=== PATIENT | female | born 1970 | race Caucasian/White ===

== ENCOUNTER → 2017-08-27 | Day surgery (SDC) | payer BC ==
[~2017-08-27] MED LIST: ALIGN4 MG PO; ARMOUR THYROID60 MG PO; BIOTIN PO; DESLORATADINE5 MG PO; DULERA 100 MCG/13 GM INH; DYMISTA NASAL S23 GM; FENTANYL CITRATE/PF 100MCG/2 ML INJ ONE; FISH OIL PO; GLIPIZIDE5 MG PO; HYDROCODONE CO120 ML PO; INVOKANA PO; LEVAQUIN500 MG PO; LIDOCAINE HCL 2% LOCAL INJ 5 ML SDV VIAL INJ ONE; METFORMIN HCL1000 MG PO; MIDAZOLAM HCL 2 MG/2 ML VIAL ONE; MULTIVITAMINS1 EAC8 PO; OMEPRAZOLE40 MG PO; OYSTER SHELL C1 EACH PO; PANTOPRAZOLE SO40 MG PO; PROAIR HFA INH8.5 GM INH; PROPOFOL IV EMULSION 10 MG/ML 50 ML VIAL ONE; SINGULAIR10 MG PO; TESSALON PERLE100 MG PO; TRADJENTA5 MG PO; VIT D 3 PO; XANAX2 MG PO; XIFAXAN550 MG PO; ZANTAC150 MG PO; ZYRTEC10 M3 PO; amoxicillin; ventolin inhaler
--- OUTSIDE RECORDS SUMMARY | 2017-08-27 08:20 | XMS REPORT ---
Author Author [facility] Address Unknown Phone Unavailable Care Team Providers Care Will Call Clerk Name Role Phone DAYSI ARCHER Unavailable Unavailable Problems This patient has no known problems. Allergies, Adverse Reactions, Alerts This patient has no known allergies or adverse reactions. Medications This patient has no known medications. Results Test Description Test Time Test Comments Text Results Atomic Results Result Comments CHEST SINGLE (PORTABLE) [place] [address] Patient Name: PIPPA CONTRERAS MR #: [id number] : 1970 Age/Sex: 46/F Req #: [id number] Adm Physician: Ordered by: DAYSI ARCHER MD Report #: [id number] Location: ER Room/Bed: Procedure: [id number] DX/CHEST SINGLE (PORTABLE) Exam Date: 03/25/17 Exam Time: 1140 REPORT STATUS: Signed PROCEDURE: CHEST SINGLE (PORTABLE) TECHNIQUE: Portable AP chest INDICATION: Chest and back pain COMPARISON: None. FINDINGS: The lungs are clear and symmetrically inflated. No pleural effusions. Normal heart size and mediastinal contour. CONCLUSION: No acute abnormality. Dictated by: Alexa Rausch M.D. on 03/25/2017 at 12:25 Electronically approved by: Alexa Rausch M.D. on 03/25/2017 at 12:25 Dictated By: ALEXA RAUSCH MD [id number] Transcribed By: JOCY on 03/25/17 1225 COPY TO: DAYSI ARCHER MD
--- OUTSIDE RECORDS SUMMARY | 2017-08-27 08:20 | XMS REPORT ---
Author Author Esther Moseley [facility] eClinical[employer] Address Unknown Phone Unavailable Care Team Providers Care Government Relations Manager Name Role Phone Esther Moseley CP Unavailable Allergies, Adverse Reactions, Alerts Substance Reaction Event Type N.K.D.A. Info Not Available Non Drug Allergy Problems Problem Type Condition Code Onset Dates Condition Status Assessment Allergic rhinitis J30.89 Active Assessment Sinusitis - Chronic J32.9 Active Assessment Arthralgia of bilateral temporomandibular joint M26.623 Active Assessment Cough R05 Active Assessment Hoarseness R49.8 Active Assessment Edema of larynx J38.4 Active Assessment Chronic laryngitis (LPRD) J37.0 Active Problem Acute nasopharyngitis J00 Active Problem Sinusitis - Acute J01.90 Active Problem Chronic rhinitis J31.0 Active Problem Allergic rhinitis J30.89 Active Problem Otalgia * 388.70 Active Problem Wheezing R06.2 Active Problem Otalgia, left ear H92.02 Active Problem Arthralgia of bilateral temporomandibular joint M26.623 Active Problem Cough R05 Active Problem Cough R05 Active Problem GERD K21.9 Active Problem Thrush Candidiasis B37.0 Active Problem Hoarseness R49.8 Active Problem Hypertrophy of tonsil with adenoids 474.10 Active Problem Postnasal drip R09.82 Active Problem Chronic laryngitis (LPRD) J37.0 Active Problem Pain in throat R07.0 Active Problem Otalgia, bilateral H92.03 Active Problem Acute lymphadenitis L04.0 Active Problem 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 Active Problem Nasal airway obstruction R09.81 Active Problem Sinusitis - Chronic J32.8 Active Problem Sinusitis - Chronic J32.9 Active Problem Edema of larynx J38.4 Active Problem Asthma, other J45.998 Active Problem Allergic rhinitis due to pollen J30.1 Active Medications Medication Code System Code Instructions Start Date End Date Status Dosage EpiPen 2-Geremias [facility] 71640484600 0.3 MG/0.3ML Injection August 25, 2015 Active as directed Zantac 150 Maximum Strength [facility] [address]-08 Active not defined Singulair [facility] [address]-42 Active not defined [place] Thyroid [facility] [address]-97 Active not defined Dulera [facility] [address]-68 Active not defined Prilosec [facility] [address]-04 Active not defined Claritin [facility] [address]-10 Active not defined Actos [facility] [address]-69 Active not defined GlipiZIDE [facility] [address]-15 Active not defined Flonase [facility] [address]-47 Active not defined Tradjenta [facility] [address]-82 Active not defined Dymista [facility] 49689210030 137-50 MCG/ACT Nasally Twice a day October 17, 2015 Active 1 puff in each nostril Biotin [facility] 78229-35035 Active not defined Results No Known Results Summary Purpose eClinicalWorks Submission
--- OUTSIDE RECORDS SUMMARY | 2017-08-27 08:20 | XMS REPORT ---
Author Author Esther Moseley [facility] eClinicalWorks Address Unknown Phone Unavailable Care Team Providers Care Author Agent Name Role Phone Esther Moseley CP Unavailable Allergies, Adverse Reactions, Alerts Substance Reaction Event Type N.K.D.A. Info Not Available Non Drug Allergy Problems Problem Type Condition Code Onset Dates Condition Status Assessment Headache R51 Active Assessment Chronic laryngitis (LPRD) J37.0 Active Assessment Arthralgia of bilateral temporomandibular joint M26.623 Active Assessment Sinusitis - Chronic J32.8 Active Assessment Cough R05 Active Problem Acute nasopharyngitis J00 Active Problem Chronic rhinitis J31.0 Active Problem Otalgia * 388.70 Active Problem Wheezing R06.2 Active Problem Hypertrophy of tonsil with adenoids 474.10 Active Problem Arthralgia of bilateral temporomandibular joint M26.623 Active Problem Thrush Candidiasis B37.0 Active Problem Otalgia, left ear H92.02 Active Problem Postnasal drip R09.82 Active Problem Chronic laryngitis (LPRD) J37.0 Active Problem Headache R51 Active Problem Hoarseness R49.8 Active Problem Sinusitis - Chronic J32.8 Active Problem Nasal airway obstruction R09.81 Active Problem Cough R05 Active Problem GERD K21.9 Active Problem Pain in throat R07.0 Active Problem Otalgia, bilateral H92.03 Active Problem Cough R05 Active Problem Cough R05 Active Problem Asthma, other J45.998 Active Problem Allergic rhinitis due to pollen J30.1 Active Problem Acute lymphadenitis L04.0 Active Problem 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 Active Problem Sinusitis - Acute J01.90 Active Problem Allergic rhinitis J30.89 Active Problem Sinusitis - Chronic J32.9 Active Problem Edema of larynx J38.4 Active Medications Medication Code System Code Instructions Start Date End Date Status Dosage Tradjenta [facility] [address]-13 Active not defined GlipiZIDE [facility] [address]-40 Active not defined Flonase [facility] [address]-56 Active not defined Biotin [facility] [address]86-30688 Active not defined Zantac 150 Maximum Strength [facility] [address]-17 Active not defined Claritin [facility] [address]-31 Active not defined Singulair [facility] [address]-71 Active not defined Dulera [facility] [address]-04 Active not defined EpiPen 2-Geremias [facility] [id number] 0.3 MG/0.3ML Injection August 25, 2015 Active as directed Fioricet [facility] 47711070056 50-325-40 MG Orally Once a day August 05, 2017 August 15, 2017 Active 1 tablet Actos [facility] [address]-75 Active not defined [place] Thyroid [facility] [address]-10 Active not defined Prilosec [facility] [address]-43 Active not defined Dymista [facility] 10940037668 137-50 MCG/ACT Nasally Twice a day October 17, 2015 Active 1 puff in each nostril Results No Known Results Summary Purpose eClinicalWorks Submission
== END | disposition home or self-care (01) ==
LOC: OR 08:18
PROVIDERS: ATTEND Internal Medicine Gastroenterology
DX: R05 Cough (principal); K31.7 Polyp of stomach and duodenum; K29.70 Gastritis, unspecified, without bleeding; K22.8 Other specified diseases of esophagus; K21.9 Gastro-esophageal reflux disease without esophagitis; K44.9 Diaphragmatic hernia without obstruction or gangrene; K58.9 Irritable bowel syndrome, unspecified; E11.9 Type 2 diabetes mellitus without complications; D64.9 Anemia, unspecified; J45.909 Unspecified asthma, uncomplicated; E66.01 Morbid (severe) obesity due to excess calories; F41.9 Anxiety disorder, unspecified; Z01.810 Encounter for preprocedural cardiovascular examination; Z79.84 Long term (current) use of oral hypoglycemic drugs; Z68.42 Body mass index [BMI] 45.0-49.9, adult; Z80.0 Family history of malignant neoplasm of digestive organs
CPT/HCPCS: 36415; 43239; 81025; 82948; 93005; J2001; J2250

== ENCOUNTER → 2017-09-25 | Outpatient (CLI) | payer BC ==
[~2017-09-25] MED LIST changes: -FENTANYL CITRATE/PF 100MCG/2 ML INJ ONE; -LIDOCAINE HCL 2% LOCAL INJ 5 ML SDV VIAL INJ ONE; -MIDAZOLAM HCL 2 MG/2 ML VIAL ONE; -PROPOFOL IV EMULSION 10 MG/ML 50 ML VIAL ONE
--- NOTE | 2017-09-25 10:23 | Diagnostic Imaging Report ---
PROCEDURE: CT CHEST WITHOUT CONTRAST CT scan of the chest WITHOUT intravenous contrast, using standard protocol. TECHNIQUE: The chest was scanned utilizing a multidetector helical scanner from the apex to the level of the adrenal glands. No IV contrast was administered because of referring physician request. Coronal and sagittal multiplanar reformations were obtained. COMPARISON: Chest x-ray 03/25/2017 INDICATIONS: CHRONIC COUGH FINDINGS: Lines/tubes: None. Lungs and Airways: Small paramediastinal air filled cyst in the right upper lobe. The lungs and airways are otherwise normal with no focal abnormality demonstrated. Pleura: The pleural spaces are clear. Heart and mediastinum: Enlargement of the left lobe of the thyroid without discrete nodule.. No ectasia or aneurysmal dilatation of the thoracic aorta. Pulmonary outflow tract is of normal caliber. No axillary, hilar, or mediastinal lymphadenopathy. No pericardial effusion. Soft tissues: Normal. Abdomen: Visualized portions of the liver, spleen, pancreas, and adrenal glands are unremarkable. Bones: No osseous destructive lesions or focal soft tissue abnormalities. Mild degenerative disc changes of the thoracic spine. IMPRESSION: No intrathoracic CT abnormalities. Dictated by: Ajay Gomez M.D. on 09/25/2017 at 10:25 Electronically approved by: Ajay Gomez M.D. on 09/25/2017 at 10:25
== END ==
LOC: CT 09:42
PROVIDERS: ATTEND Family Medicine
DX: R05 Cough (principal)
CPT/HCPCS: 71250

== ENCOUNTER → 2019-08-28 | Outpatient (CLI) | payer BC ==
--- NOTE | 2019-08-28 10:19 | Diagnostic Imaging Report ---
EXAMINATION: KNEE LEFT 1-2 VIEWS INDICATION: Patellar tendinitis COMPARISON: None FINDINGS: No acute fracture or dislocation. Alignment is anatomic. Moderate patellofemoral compartment predominant tricompartmental degenerative changes with joint space narrowing and osteophyte formation. No substantial joint effusion. IMPRESSION: No acute osseous injury. Moderate patellofemoral compartment predominant tricompartmental degenerative changes. Signed by: Alysia London MD on 08/28/2019 10:16 AM
== END ==
LOC: RAD 09:08
PROVIDERS: ATTEND Family Medicine
DX: M76.52 Patellar tendinitis, left knee (principal)

== ENCOUNTER 2020-02-17 20:08 | Emergency (ER) | payer BC ==
[~2020-02-17] VITALS: Ht 177.8 cm; Wt 142.9 kg
[2020-02-17] MEDS ORDERED: POLYTRIM EYE DR10 ML OD (21:03)
--- NOTE | 2020-02-17 21:03 | Emergency Department Note ---
History of Present Illnes History of Present Illness Chief Complaint: rgt eye pain/scratch s/p edge of ziplock hit pt in the eye History of Present Illness This is a 49 year old female. was doing well prior to this Historian: Patient Arrival Mode: Car History limited by: condition of the patient (normal) Director Translational Required: No Onset (how long ago): hour(s) (2) Location: rgt eye Quality: sharp Radiation: Reports non-radiation Severity: moderate Onset quality: sudden Duration (how long): hour(s) (2) Timing of current episode: constant Progression: unchanged Chronicity: new Context: Reports trauma/injury; Denies recent illness, Denies recent surgery, Denies recent immobilization, Denies recent travel, Denies new medications, Denies hx of DVT/PE, Denies non- compliance w/ medications Relieving factors: none Exacerbating factors: none Associated symptoms: Reports denies other symptoms Treatments prior to arrival: none Past Medical/Family History Physician Review I have reviewed the patient's past medical and family history. Any updates have been documented here. 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 dad & sister with colon cancer hx left lung chest tube from pneumonia 2002 and now with bleb on lung per pt smoker occassional Social History Smoking Cessation: Never Smoker Any Illegal Drug Use: No TB Exposure/Symptoms: No Physically hurt or threatened: No Family History Family history of heart diseas: No Other Last Tetanus: unk Is patient up to date on immun: Yes Review of Systems Review of Systems Constitutional: Reports no symptoms EENTM: Reports as per HPI Cardiovascular: Reports no symptoms Respiratory: Reports no symptoms Gastrointestinal: Reports no symptoms Genitourinary: Reports no symptoms Musculoskeletal: Reports no symptoms Integumentary: Reports no symptoms Neurological: Reports no symptoms Psychological: Reports no symptoms Endocrine: Reports no symptoms Hematological/Lymphatic: Reports no symptoms Review of other systems: All other systems negative Physical Exam Related Data Allergies: Coded Allergies: cinnamon (Verified Allergy, Unknown, 10/01/16) latex (Verified Allergy, Unknown, RASH/ITCHING, 10/01/16) Uncoded Allergies: SHRIMP (Allergy, Unknown, 10/01/16) Vital signs reviewed: Yes Physical Exam CONSTITUTIONAL Constitutional: Present well-developed, Present well-nourished HENT HENT: Present normocephalic, Present atraumatic, Present oropharynx clear/moist, Present nose normal HENT L/R: Present left ext ear normal, Present right ext ear normal EYES Eyes: Reports PERRL, Reports conjunctivae normal, Reports other (+ RIGHT CORNEAL ABRASION SEEN WITH FLOURESCEIN) NECK Neck: Present ROM normal PULMONARY Pulmonary: Present effort normal, Present breath sounds normal CARDIOVASCULAR Cardiovascular: Present regular rhythm, Present heart sounds normal, Present capillary refill normal, Present normal rate GASTROINTESTINAL Abdominal: Present soft, Present nontender, Present bowel sounds normal GENITOURINARY Genitourinary: Present exam deferred SKIN Skin: Present warm, Present dry MUSCULOSKELETAL Musculoskeletal: Present ROM normal NEUROLOGICAL Neurological: Present alert, Present oriented x 3, Present no gross motor or s ensory deficits PSYCHOLOGICAL Psychological: Present mood/affect normal, Present judgement normal Assessment & Plan Medical Decision Making MDM SEE BELOW Assessment & Plan Final Impression: (1) Corneal abrasion Depart Disposition: HOME, SELF-retirement Meds Active Scripts Polymyxin B Sulfate/Tmp (POLYTRIM EYE DROPS) 10 Ml Drops, 1 DROP OD Q4HR, #1 B LATOYA Prov:STEFFEN BEARD AVELINA 02/17/20 Reported Medications Pantoprazole Sodium* (PROTONIX) 40 Mg Tablet.dr, 40 MG PO DAILY, TAB 08/27/17 Levofloxacin (LEVAQUIN) 500 Mg Tablet, 500 MG PO DAILY, TAB 08/23/17 Hydrocodone Bit/Homatropine (HYDROCODONE COMPOUND SYRUP) 120 Ml Syrup, PO PRN 08/23/17 Benzonatate (TESSALON PERLE) 100 Mg Capsule, 100 MG PO PRN 10/01/16 Calcium Carbonate/Vitamin D2 (OYSTER SHELL CALCIUM-VIT D TAB) 1 Each Tablet, PO DAILY 10/01/16 [Vit D 3] No Conflict Check, 4000 INTLU PO DAILY 10/01/16 Cetirizine Hcl (ZYRTEC) 10 Mg Capsule, 10 MG PO DAILY THERAPEUTICALLY SUBSTITUTED WITH LORATIDINE 10MG 10/01/16 Bifidobacterium Infantis (ALIGN) 4 Mg Capsule, 4 MG PO DAILY 10/01/16 [Invokana] No Conflict Check, 300 MG PO DAILY 10/01/16 Linagliptin (TRADJENTA) 5 Mg Tablet, 5 MG PO DAILY 10/01/16 Thyroid,Pork (ARMOUR THYROID) 60 Mg Tablet, 60 MG PO HS, TAB 01/15/14 Montelukast Sodium (SINGULAIR) 10 Mg Tablet, 10 MG PO DAILY 01/15/14 [Biotin] No Conflict Check, 5000 MCG PO DAILY 01/15/14 [Fish Oil] No Conflict Check, 1200 MG PO DAILY 01/15/14 Multivitamin (MULTIVITAMINS) 1 Each Tablet, PO DAILY 01/15/14 Mometasone/Formoterol (DULERA 100 MCG/5 MCG INHALER) 13 Gm Hfa.aer.ad, INH BID 01/15/14 Azelastine/Fluticasone (DYMISTA NASAL SPRAY) 23 Gm [place].pump, NA BID 01/15/14 STEFFEN BEARD Feb 17, 2020 21:03
--- OUTSIDE RECORDS SUMMARY | 2020-02-17 21:16 | XMS REPORT | Continuity of Care Document ---
Author Author [facility] Address Unknown Phone Unavailable Care Team Providers Care Inspector Automatic Typewriter Name Role Phone [facility] [employer] Unavailable Un available Problems Problem Status Onset Date Classification Date Reported Comments Source Dysphonia 0 05/23/2018 12/06/2018 [facility] R49.0 Active 05/19/2018 [facility] Disease of esophagus, unspecified 03/30/2018 08/10/2018 [facility] CHRONIC COUGH; GERD Active 12/12/2017 [facility] ESOPAHGEAL NODULE; ESOPHAGEAL POLYPS Active 12/12/2017 [facility] NEW PT CONSULT- Active 10/22/2017 [facility] Cough 08/10/2018 [facility] Dysphagia, unspecified 08/03/2018 [facility] Other specified diseases of esophagus 06/28/2018 [facility] Acute gastritis without bleeding 08/10/2018 [facility] Anxiety disorder, unspecified 08/10/2018 [facility] Type 2 diabetes mellitus without complications 08/10/2018 [facility] 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/28/2018 [facility] Personal history of colonic polyps 06/28/2018 [facility] Personal history of nicotine dependence 06/28/2018 [facility] Unspecified osteoarthritis, unspecified site 08/10/2018 [facility] Family history of diabetes mellitus 06/28/2018 [facility] Family history of stroke 06/28/2018 [facility] Gastro-esophageal reflux disease without esophagitis 12/06/2018 [facility] Unspecified asthma, uncomplicated 12/06/2018 [facility] Acute gastritis (disorder) Res olved Problem 01/2019 [facility] Anxiety (finding) Resolved Problem 12/06/2018 [facility] Arthritis (disorder) Resolved Problem 12/06/2018 [facility] Diabetes mellitus (disorder) R esolved Problem 01/2019 [facility] Disease of thyroid gland (disorder) Resolved Problem 01/2019 [facility] Hiatal hernia (disorder) Resol kianna Problem 01/2019 [facility] Inflammatory bowel disease (disorder) Resolved Problem 12/06/2018 [facility] Polyp of colon (disorder) Reso lved Problem 01/2019 [facility] Obesity, unspecified 08/10/2018 [facility] Diaphragmatic hernia without obstruction or gangrene 08/10/2018 [facility] Disorder of thyroid, unspecified 08/10/2018 [facility] Body mass index (BMI) 45.0-49.9, adult 08/10/2018 [facility] Medications Medication Details Route Status Patient Instructions Ordering Provider Order Date Source Hydrocortisone 25 MG/ML Topical Cream [Anusol HC] 1 appl, [place], BID, X 14 day, # 30 gm, 2 Refill(s), Pharmacy: [facility] [id number] No Longer Active 12/09/2017 [facility] thyroid (NURSING HOME) 60 MG Oral Tablet [Morgan Thyroid] 60 mg = 1 tab, PO, Daily, 0 Refill(s) Active 12/09/2017 [facility] biotin PO, Daily, 0 Refill(s) Active 12/09/2017 [facility] Fish Oil 1,200 mg, PO, 0 Refil l(s) Active 12/09/2017 [facility] Cetirizine 10 mg, PO, Daily, 0 Refill(s) Active 12/09/2017 [facility] celecoxib 200 mg, PO, 0 Refill (s) Active 12/09/2017 [facility] Multiple Vitamins oral tablet PO, Daily, 0 Refill(s) Active 12/09/2017 [facility] benzonatate 100 mg oral capsule 100 mg = 1 cap, PO, TID, 0 Refill(s) Active 12/09/2017 [facility] Vitamin D3 5,000 IntlUnit, PO, 0 Refill(s) Active 12/09/2017 [facility] pantoprazole 40 mg, PO, Daily, # 30 tab, 0 Refill(s) Active 12/09/2017 [facility] Linagliptin 5 MG Oral Tablet [Tradjenta] 5 mg = 1 tab, PO, Daily, 0 Refill(s) Active 12/09/2017 [facility] Xanax 1 mg, PO, TID, 0 Refill( s) Active 12/09/2017 [facility] canagliflozin 300 MG Oral Tablet [Invokana] 300 mg = 1 tab, PO, Before Breakfast, # 30 tab, 5 Refill(s) Active 12/09/2017 [facility] Singulair 10 mg, PO, Daily, 0 Refill(s) Active 12/09/2017 [facility] 60 ACTUAT Fluticasone propionate 0.05 MG /ACTUAT Dry Powder Inhaler INHALATION, BID, 0 Refill(s) Active 12/09/2017 [facility] Amitriptyline 50 mg, PO, Bedti me, 0 Refill(s) Active 12/09/2017 [facility] Calcium 600 +D oral tablet 1 t ab, PO, TID, 0 Refill(s) Active 12/09/2017 [facility] Bifidobacterium Infantis 4 MG Oral Capsule [Align] 4 mg = 1 cap, PO, Daily, # 28 cap, 0 Refill(s) Active 12/09/2017 [facility] Allergies, Adverse Reactions, Alerts Substance Category Reaction Severity Reaction type Status Date Reported Comments Source No Known Medication Allergies Assertion Drug aller gy [facility] Immunizations No Data Provided for This Section Results No Data Provided for This Section Pathology Reports No Data Provided for This Section Diagnostic Reports No Data Provided for This Section Consultation Notes No Data Provided for This Section Discharge Summaries No Data Provided for This Section History and Physicals No Data Provided for This Section Vital Signs Vital Sign Value Date Comments Source BMI Calculated 45.06 12/09/2017 [facility] Weight 142.455 12/09/2017 [facility] Height 177.8 cm 12/09/2017 [facility] Systolic (mm Hg) 155 12/09/2017 [facility] Diastolic (mm Hg) 87 12/09/2017 [facility] Heart Rate 90 12/09/2017 [facility] Respitory Rate 16 12/09/2017 [facility] Encounters Location Location Details Encounter Type Encounter Number Reason For Visit Attending Provider ADM Date DC Date Status Source [facility] Outpatient [id number] Joselito Francoi 12/09/2017 12/10/2017 [facility] [id number] Joselito Francoi 01/14/2018 01/14/2018 [facility] Bed[facility] Outpatient [id number] JoselitoTaylori 01/21/2018 01/21/2018 [facility] [id number] Esther Sandraum 03/18/2018 04/17/2018 [facility] [id number] Esther Sandraum 04/19/2018 05/19/2018 [facility] [id number] Esther Sandraum 05/31/2018 06/30/2018 [facility] Procedures Procedure Code Date Perfomer Comments Source Colonoscopy [id number] [facility] Endoscopy of GI tract [id number] [facility] Assessment and Plan No Data Provided for This Section Plan of Care No Data Provided for This Section Social History Social History Date Source Social History TypeResponse Alcohol Current, Type Wine, Liquor. Smoking Status Former smoker; Ready to change: No; Concerns about tobacco use in household: No; Exposure to Tobacco Smoke None; Cigarette Smoking Last 365 Days No; Reg Smoking Cessation Counseling No entered on: 12/09/17 12/09/2017 [facility] Social History TypeResponse Alcohol Current, Type Wine, Liquor. Smoking Status Former smoker; Ready to change: No; Concerns about tobacco use in household: No; Exposure to Tobacco Smoke None; Cigarette Smoking Last 365 Days No; Reg Smoking Cessation Counseling No entered on: 12/09/17 12/09/2017 [facility] Family History No Data Provided for This Section Advance Directives No Data Provided for This Section Functional Status No Data Provided for This Section
--- OUTSIDE RECORDS SUMMARY | 2020-02-17 21:16 | XMS REPORT | Clinical Summary ---
Author Author [facility] Organization [facility] Address Unknown Phone Unavailable Care Team Providers Care Signals Analyst Name Role Phone Esther Moseley MD PCP [phone] Allergies Comments Active Allergy Reactions Severity Noted Date Reverse reaction - Pain, sweating , insomnia Morphine Other (See 01/22/2020 Comments) Medications End Date Status Medication Sig Dispensed Refills Start Date Active cetirizine (ZyrTEC) 10 MG Chew 10 mg 0 chewable tablet every evening. Active metFORMIN (GLUCOPHAGE) Take 500 mg 0 500 mg tablet by mouth 2 (two) times a day with meals. Active pantoprazole (PROTONIX) Take 40 mg by 0 40 MG EC tablet mouth daily. Active montelukast (SINGULAIR) Take 10 mg by 0 10 mg tablet mouth nightly. Active rosuvastatin (CRESTOR) 10 Take 10 mg by 0 mg tablet mouth every evening. Active losartan (COZAAR) 25 MG Take 25 mg by 0 tablet mouth every evening. Active fluticasone propionate 2 sprays by 0 (FLONASE) 50 Each Nare mcg/actuation nasal spray route daily. Active benzonatate (TESSALON) Take 100 mg 0 100 MG capsule by mouth 3 (three) times a day as needed for cough. Active omega 2-qqz-rsp-fish oil Take by 0 (Fish Oil) 100-160-1,000 mouth. mg capsule Active biotin-keratin 10,000-100 Take by 0 mcg-mg tablet mouth. Active calcium carbonate/vitamin Take by 0 D3 (CALCIUM 600 WITH mouth. VITAMIN D3 ORAL) Active vitamin D3-folic acid Take by mouth 0 5,000 unit- 1 mg tablet daily. Active ascorbic acid, vitamin C, Take 500 mg 0 (VITAMIN C) 500 MG tablet by mouth daily. Active Bifidobacterium infantis Take by 0 (ALIGN ORAL) mouth. Active methylcellulose (FIBER Take by mouth 0 THERAPY, M-CELLULOSE, every ORAL) evening. FIBER THERAPY Active therapeutic multivitamin Take 1 tablet 0 (THERAGRAN) tablet by mouth daily. Womens' daily Active thyroid, pork, 15 mg Take 3 30 tablet 1 02/01 tablet tablets (45 0 mg total) by mouth daily. Active insulin ASPART protamine Inject 10 15 mL 1 1 and insulin ASPART units twice a 0 (NovoLOG 70/30) 100 day with unit/mL (70-30) insulin food. pen Active pen needle, diabetic (Pen Inject twice 100 each 1 Needle) 31 gauge x 5/16" a day. 0 needle 03/03/2020 Active pregabalin (LYRICA) 100 Take 1 60 capsule 0 MG capsule capsule (100 0 mg total) by mouth 2 (two) times a day for 30 days. 03/04/2020 Active FLUoxetine (PROzac) 20 MG Take 1 30 capsule 0 capsule capsule (20 0 mg total) by mouth every morning for 30 days. 03/03/2020 Active valACYclovir (VALTREX) Take 1 tablet 60 tablet 0 1 1000 MG tablet (1,000 mg 0 total) by mouth 2 (two) times a day for 30 days. 02/23/2020 Active carBAMazepine (TEGretol) Take 1 tablet 42 tablet 0 200 mg tablet (200 mg 0 total) by mouth 3 (three) times a day for 7 days, THEN 1 tablet (200 mg total) 2 (two) times a day for 7 days, THEN 1 tablet (200 mg total) daily for 7 days. 02/02/2020 Discontinued (Stop Taking at Discharge) oxcarbazepine (OXTELLAR Take 1,500 mg 0 XR ORAL) by mouth every evening. 02/02/2020 Discontinued (Stop Taking at Discharge) baclofen (LIORESAL) 20 MG Take 20 mg by 0 tablet mouth 3 (three) times a day. 02/02/2020 Discontinued (Reorder) pregabalin (LYRICA) 75 MG Take 150 mg 0 capsule by mouth 2 (two) times a day. 02/02/2020 Discontinued (Stop Taking at Discharge) amitriptyline (ELAVIL) Take 100 mg 0 100 MG tablet by mouth nightly. 02/02/2020 Discontinued (Stop Taking at Discharge) empagliflozin (Jardiance) Take 10 mg by 0 10 mg tablet tablet mouth every evening. 02/02/2020 Discontinued (Stop Taking at Discharge) thyroid, pork, (ARMOUR Take 60 mg by 0 THYROID) 60 mg tablet mouth every evening. 02/02/2020 Discontinued (Reorder) ALPRAZolam (XANAX) 1 MG Take 1 mg by 0 tablet mouth nightly as needed for anxiety. 02/02/2020 Discontinued carBAMazepine (TEGretol) Take 1 tablet 120 tablet 0 200 mg tablet (200 mg 0 total) by mouth every 6 (six) hours for 30 days. 02/09/2020 ALPRAZolam (XANAX) 0.25 Take 1 tablet 7 tablet 0 MG tablet (0.25 mg 0 total) by mouth nightly as needed for anxiety for up to 7 days. 02/12/2020 enoxaparin (Lovenox) 40 Inject 0.4 mL 10 Syringe 0 mg/0.4 mL (40 mg total) 0 syringeIndications: deep under the vein thrombosis skin daily prevention for 10 days .deep vein thrombosis prevention. Active Problems Problem Noted Date Trigeminal neuralgia of left side of face 01/21/2020 Type 2 diabetes mellitus with hyperglycemia, without long-term current use 01/21/2020 of insulin Acquired hypothyroidism 01/21/2020 Class 3 severe obesity due to excess calories with se rious comorbidity and 01/21/2020 body mass index (BMI) of 40.0 to 44.9 i n adult Encounters Care Team Description Date Type Specialty Vega Minaya MD Follow-up examination following surgery (Primary Dx); Trigeminal neuralgia of left side of face 02/11/2020 Office Visit Neurosurgery 02/11/2020 Travel Regina Wooten LVN 02/08/2020 Telephone Neurosurgery Regina Wooten LVN 02/04/2020 Telephone Neurosurgery 02/03/2020 Travel Radha Amaral MD Everitt, Amanda W., APRN 01/26/2020 Anesthesia General Surgery Event Vega Minaya MD LEFT RETRO MASTOID CRANIECTOMY AND MICRO VASCULAR DECOMPRESSION OF CRANIAL NERVE FIVE, SSEP/ABR MONITORING 01/26/2020 Surgery General Surgery Vega Minaya MD Trigeminal neuralgia 01/26/2020 Hospital Neurology Encounter Vega Minaya MD Trigeminal neuralgia of left side of fac e (Primary Dx); Trigeminal neuralgia 01/26/2020 Hospital Neurosurgery - Encounter 02/02/2020 Vega Minaya MD Preop examination (Primary Dx); Preop testing 01/22/2020 Pre-Admission Pre-Admission Testi ng Testing 01/22/2020 Travel Vega Minaya MD Arrived 01/21/2020 Hospital Radiology Encounter Vega Minaya MD Trigeminal neuralgia of left side of fac e (Primary Dx); Type 2 diabetes mellitus with hyperglycemia, without long-term current use of insulin (HCC); Acquired hypothyroidism; Class 3 severe obesity due to excess calories with serious comorbidity and body mass index (BMI) of 40.0 to 44.9 in adult (HCC) 01/21/2020 Office Visit Neurosurgery Regina Wooten LVN Trigeminal neuralgia (Primary Dx); Preop testing 01/21/2020 Orders Only Neurosurgery Regina Wooten LVN 01/20/2020 Abstract Neurosurgery 01/20/2020 Travel after 02/16/2019 Immunizations Name Administration Dates Next Due FLUCELVAX QUAD PF 01/29/2020 Surgical History Surgery Date Site/Laterality Comments TONSILLECTOMY + adenoidectomy CRANIOTOMY 01/26/2020 Head/N/A Procedure: LEFT RETRO MASTOID CRANIECTOMY AND MICROVASCULAR DECOMPRESSION OF CRANIAL NERVE FIVE, SSEP/ABR MONITORING; Surgeon: Vega Minaya MD; Location: [facility]; Service: Neurosurgery; Laterality: N/A; Medical History Medical History Date Comments Diabetes mellitus (HCC) GERD (gastroesophageal reflux disease) Disease of thyroid gland Anxiety Arthritis Trigeminal neuralgia Anesthesia NHAP / NFHAP Denti tion: intact Does not exercise denied SOB or CP / has difficulty climbing stairs Asthma controlled / allergy nate josefa Family History Medical History Relation Name Comments Cancer Father Diabetes Father Heart disease Father Hypertension Mother Relation Name Status Comments Father Alive Mother Social History Date Tobacco Use Types Packs/Day Years Used Quit: 2017 Former Smoker Cigarettes 1 20 Smokeless Tobacco: Never Used Drinks/Week oz/Week Comments Alcohol Use once a month Yes Sex Assigned at Date Recorded Not on file Date Recorded COVID-19 Exposure Response 02/11/2020 8:59 AM CDT In the last month, have you been in contact with No / Unsure someone who was confirmed or suspected to have Coronavirus / COVID-19? Last Filed Vital Signs Reading Time Taken Comments Vital Sign 125/80 02/02/2020 3:19 PM CDT Blood Pressure 83 02/02/2020 3:19 PM CDT Pulse 36.5 C (97.7 F) 02/02/2020 3:19 PM CDT Temperature 18 02/02/2020 3:19 PM CDT Respiratory Rate 100% 02/02/2020 3:19 PM CDT Oxygen Saturation - - Inhaled Oxygen Concentration 131 kg (289 lb 1.6 oz) 01/30/2020 5:00 AM CDT Weight 177.8 cm (5' 10") 01/27/2020 12:07 AM CDT Height 41.48 01/27/2020 12:07 AM CDT Body Mass Index Plan of Treatment Health Maintenance Due Date Last Done Comments DIABETES: RETINAL EYE 1981 EXAM DIABETIC FOOT EXAM 1981 URINE MICROALBUMIN 1981 CERVICAL CANCER SCREENING 1992 INFLUENZA VACCINE Completed 01/29/2020 Procedures Comments Procedure Name Priority Date/Time Associated Diag nosis POC GLUCOSE Routine 02/02/2020 11:34 AM CDT POC GLUCOSE Routine 02/02/2020 7:26 AM CDT ESTIMATED GFR Routine 02/02/2020 4:40 AM CDT HC COMPLETE BLD COUNT Routine 02/02/2020 W/AUTO DIFF 4:40 AM CDT BASIC METABOLIC PANEL Routine 02/02/2020 4:40 AM CDT POC GLUCOSE Routine 02/01/2020 5:56 PM CDT POC GLUCOSE Routine 02/01/2020 2:32 PM CDT POC GLUCOSE Routine 02/01/2020 12:11 PM CDT US DUPLEX VENOUS UPPER Routine 02/01/2020 EXTREMITY LEFT 9:35 AM CDT POC GLUCOSE Routine 02/01/2020 8:03 AM CDT POC GLUCOSE Routine 02/01/2020 4:33 AM CDT POC GLUCOSE Routine 01/31/2020 10:18 PM CDT POC GLUCOSE Routine 01/31/2020 7:43 PM CDT POC GLUCOSE Routine 01/31/2020 5:10 PM CDT POC GLUCOSE Routine 01/31/2020 12:09 PM CDT POC GLUCOSE Routine 01/31/2020 7:57 AM CDT POC GLUCOSE Routine 01/30/2020 8:39 PM CDT POC GLUCOSE Routine 01/30/2020 5:20 PM CDT POC GLUCOSE Routine 01/30/2020 11:35 AM CDT POC GLUCOSE Routine 01/30/2020 8:30 AM CDT XR CHEST 1 VW PORTABLE Routine 01/30/2020 5:36 AM CDT ESTIMATED GFR Routine 01/30/2020 2:25 AM CDT LIPID PANEL Routine 01/30/2020 2:25 AM CDT VITAMIN D 25 HYDROXY Routine 01/30/2020 LEVEL 2:25 AM CDT PHOSPHORUS LEVEL Routine 01/30/2020 2:25 AM CDT MAGNESIUM LEVEL Routine 01/30/2020 2:25 AM CDT IONIZED CALCIUM Routine 01/30/2020 2:25 AM CDT HC COMPLETE BLD COUNT Routine 01/30/2020 W/AUTO DIFF 2:25 AM CDT BASIC METABOLIC PANEL Routine 01/30/2020 2:25 AM CDT POC GLUCOSE Routine 01/29/2020 9:07 PM CDT POC GLUCOSE Routine 01/29/2020 8:13 PM CDT POC GLUCOSE Routine 01/29/2020 3:37 PM CDT HC URINALYSIS CHEMICAL Routine 01/29/2020 12:15 PM CDT ESTIMATED GFR Timed 01/29/2020 12:00 PM CDT BASIC METABOLIC PANEL Timed 01/29/2020 12:00 PM CDT BETA HYDROXYBUTYRATE Routine 01/29/2020 11:32 AM CDT CORTISOL LEVEL, RANDOM Routine 01/29/2020 11:26 AM CDT T4, FREE Routine 01/29/2020 11:26 AM CDT THYROID STIMULATING Routine 01/29/2020 HORMONE 11:26 AM CDT POC GLUCOSE Routine 01/29/2020 11:23 AM CDT POC GLUCOSE Routine 01/29/2020 8:[address] HEAD WO CONTRAST STAT 01/29/2020 8:10 AM CDT ESTIMATED GFR Timed 01/29/2020 8:00 AM CDT BASIC METABOLIC PANEL Timed 01/29/2020 8:00 AM CDT ESTIMATED GFR Timed 01/29/2020 4:39 AM CDT BASIC METABOLIC PANEL Timed 01/29/2020 4:39 AM CDT POC GLUCOSE Routine 01/29/2020 3:44 AM CDT ESTIMATED GFR Routine 01/29/2020 1:17 AM CDT PHOSPHORUS LEVEL Routine 01/29/2020 1:17 AM CDT MAGNESIUM LEVEL Routine 01/29/2020 1:17 AM CDT IONIZED CALCIUM Routine 01/29/2020 1:17 AM CDT BASIC METABOLIC PANEL Routine 01/29/2020 1:17 AM CDT POC GLUCOSE Routine 01/29/2020 12:37 AM CDT HC COMPLETE BLD COUNT Routine 01/29/2020 W/AUTO DIFF 12:28 AM CDT POC GLUCOSE Routine 01/28/2020 8:01 PM CDT ESTIMATED GFR Timed 01/28/2020 8:00 PM CDT BASIC METABOLIC PANEL Timed 01/28/2020 8:00 PM CDT POC GLUCOSE Routine 01/28/2020 4:22 PM CDT ESTIMATED GFR Routine 01/28/2020 3:12 PM CDT BASIC METABOLIC PANEL Routine 01/28/2020 3:12 PM CDT ARTERIAL BLOOD GAS STAT 01/28/2020 3:12 PM CDT POC GLUCOSE Routine 01/28/2020 11:23 AM CDT ESTIMATED GFR Routine 01/28/2020 10:05 AM CDT BASIC METABOLIC PANEL Routine 01/28/2020 10:05 AM CDT POC GLUCOSE Routine 01/28/2020 7:34 AM CDT POC GLUCOSE Routine 01/28/2020 6:03 AM CDT ESTIMATED GFR Routine 01/28/2020 6:00 AM CDT BASIC METABOLIC PANEL Routine 01/28/2020 6:00 AM CDT POC GLUCOSE Routine 01/28/2020 5:14 AM CDT POC GLUCOSE Routine 01/28/2020 4:06 AM CDT POC GLUCOSE Routine 01/28/2020 3:05 AM CDT ESTIMATED GFR Timed 01/28/2020 2:20 AM CDT BASIC METABOLIC PANEL Timed 01/28/2020 2:20 AM CDT PHOSPHORUS LEVEL Timed 01/28/2020 2:20 AM CDT MAGNESIUM LEVEL Timed 01/28/2020 2:20 AM CDT IONIZED CALCIUM Timed 01/28/2020 2:20 AM CDT POC GLUCOSE Routine 01/28/2020 2:01 AM CDT HC COMPLETE BLD COUNT Timed 01/28/2020 W/AUTO DIFF 2:00 AM CDT POC GLUCOSE Routine 01/28/2020 12:47 AM CDT POC GLUCOSE Routine 01/27/2020 11:49 PM CDT POC GLUCOSE Routine 01/27/2020 11:10 PM CDT POC GLUCOSE Routine 01/27/2020 9:58 PM CDT POC GLUCOSE Routine 01/27/2020 8:52 PM CDT ESTIMATED GFR Timed 01/27/2020 8:00 PM CDT BASIC METABOLIC PANEL Timed 01/27/2020 8:00 PM CDT POC GLUCOSE Routine 01/27/2020 7:59 PM CDT POC GLUCOSE Routine 01/27/2020 7:08 PM CDT POC GLUCOSE Routine 01/27/2020 6:03 PM CDT ESTIMATED GFR STAT 01/27/2020 6:00 PM CDT BASIC METABOLIC PANEL STAT 01/27/2020 6:00 PM CDT URINALYSIS SCREEN AND STAT 01/27/2020 MICROSCOPY, WITH REFLEX 5:20 PM CDT TO CULTURE URINE CULTURE STAT 01/27/2020 5:20 PM CDT BASIC METABOLIC PANEL Routine 01/27/2020 4:57 PM CDT BLOOD CULTURE, AEROBIC & Routine 01/27/2020 ANAEROBIC 4:50 PM CDT POC GLUCOSE Routine 01/27/2020 4:20 PM CDT DKA ELECTROLYTES AND Timed 01/27/2020 GLUCOSE TEST 3:20 PM CDT POC GLUCOSE Routine 01/27/2020 2:38 PM CDT INTRAOPERATIVE MONITORING Routine 01/27/2020 Trig eminal neuralgia 1:39 PM CDT POC GLUCOSE Routine 01/27/2020 1:39 PM CDT HEMOGLOBIN A1C STAT 01/27/2020 1:05 PM CDT HC COMPLETE BLD COUNT STAT 01/27/2020 W/AUTO DIFF 1:05 PM CDT DKA ELECTROLYTES AND STAT 01/27/2020 GLUCOSE TEST 1:05 PM CDT BLOOD CULTURE, AEROBIC & Routine 01/27/2020 ANAEROBIC 1:00 PM CDT ESTIMATED GFR STAT 01/27/2020 12:33 PM CDT PHOSPHORUS LEVEL STAT 01/27/2020 12:33 PM CDT MAGNESIUM LEVEL STAT 01/27/2020 12:33 PM CDT COMPREHENSIVE METABOLIC STAT 01/27/2020 PANEL 12:33 PM CDT POC GLUCOSE Routine 01/27/2020 11:42 AM CDT ARTERIAL BLOOD GAS STAT 01/27/2020 11:20 AM CDT BETA HYDROXYBUTYRATE Routine 01/27/2020 11:20 AM CDT POC GLUCOSE Routine 01/27/2020 7:42 AM CDT ESTIMATED GFR Routine 01/27/2020 7:35 AM CDT LACTIC ACID LEVEL Routine 01/27/2020 7:35 AM CDT BASIC METABOLIC PANEL Routine 01/27/2020 7:35 AM CDT POC GLUCOSE Routine 01/27/2020 4:40 AM CDT HC COMPLETE BLD COUNT Routine 01/27/2020 W/AUTO DIFF 2:25 AM CDT PROTHROMBIN TIME WITH INR Routine 01/27/2020 2:25 AM CDT PARTIAL THROMBOPLASTIN Routine 01/27/2020 TIME (PTT) 2:25 AM CDT HEMOGLOBIN A1C Routine 01/27/2020 2:25 AM CDT ESTIMATED GFR Routine 01/27/2020 12:28 AM CDT COMPREHENSIVE METABOLIC Routine 01/27/2020 PANEL 12:28 AM CDT MAGNESIUM LEVEL Routine 01/27/2020 12:28 AM CDT IONIZED CALCIUM Routine 01/27/2020 12:28 AM CDT POC GLUCOSE Routine 01/27/2020 12:11 AM CDT POC GLUCOSE Routine 01/26/2020 7:41 PM CDT RI AN ELECTIVE Routine 01/26/2020 ENDOT[address]ACHEAL AIRWAY 4:31 PM CDT CRANIOTOMY 01/26/2020 Trigeminal neuralgi a 3:16 PM CDT Case Notes EST 3HRS, SSEP/ABR Special Needs EST 3HRS, LATERAL LEFT SIDE UP POSITION, MICROSCOPE , SSEP/ABR NEUROPHYS MONITORING POC GLUCOSE Routine 01/26/2020 12:35 PM CDT SURGICAL PATHOLOGY Routine 01/26/2020 REQUEST 8:52 AM CDT ESTIMATED GFR STAT 01/26/2020 8:35 AM CDT CBC HEMOGRAM STAT 01/26/2020 8:35 AM CDT BASIC METABOLIC PANEL STAT 01/26/2020 8:35 AM CDT POC GLUCOSE Routine 01/26/2020 8:27 AM CDT COVID-19 QUALITATIVE PCR Routine 01/22/2020 Preop testing 6:26 PM CDT HC COMPLETE BLD COUNT Routine 01/22/2020 Preop te sting W/AUTO DIFF 6:13 PM CDT ECG PRE/POST OP Routine 01/22/2020 Preop examinat ion 6:07 PM CDT ESTIMATED GFR Routine 01/22/2020 5:56 PM CDT COMPREHENSIVE METABOLIC Routine 01/22/2020 Preop testing PANEL 5:56 PM CDT HEMOGLOBIN A1C Routine 01/22/2020 Preop examinati on 5:56 PM CDT TYPE AND SCREEN Routine 01/22/2020 Preop examinat ion 5:56 PM CDT PROTHROMBIN TIME WITH INR Routine 01/22/2020 Preo p examination 5:56 PM CDT PARTIAL THROMBOPLASTIN Routine 01/22/2020 Preop e xamination TIME (PTT) 5:56 PM CDT MRI HEAD EXTERNAL STUDY Routine 10/16/2019 12:00 AM CDT after 02/16/2019 Results * POC glucose (02/02/2020 11:34 AM CDT) Only the most recent of 50 results within the time period is included. POC glucose 170 (H) 65 - 99 mg/dL [place] Comment: [employer] Name: [facility] Device ID: [id number] Chartable: [facility] Notified RN Specimen Blood Performing Organization Address City/State/ZIP Code P karrie Number [facility] DE[facility] OF [address] [place] [address] PATHOLOGY AND GENOMIC MEDICINE [place] [address] * Estimated GFR (02/02/2020 4:40 AM CDT) Only the most recent of 18 results within the time period is included. [facility] Estimated GFR >=90 mL/min/1.73 m2 [place] Comment: [facility] Interpretation G1 >=90 Normal or high G2 60-89 Mildly decreased G3a 45-59 Mildly to moderately decreased G3b 30-44 Moderately to severely decreased G4 15-29 Severely decreased G5 <15 Kidney failure The eGFR was calculated using the Chronic Kidney Disease Epidemiology Collaboration (CKD-EPI) equation. Interpretation is based on recommendations of the National Kidney Foundation-Kidney Disease Outcomes Quality Initiative (NKF-KDOQI) published in 2014. Specimen Performing Organization Address City/State/ZIP Code P karrie Number [facility] [address] [place] [address] PATHOLOGY AND GENOMIC MEDICINE [address] * CBC with platelet and differential (02/02/2020 4:40 AM CDT) Only the most recent of 7 results within the time period is included. [facility] WBC 9.16 4.50 - 11.00 k/uL [facility] RBC 4.36 4.20 - 5.50 m/uL [facility] HGB 12.5 12.0 - 16.0 g/dL [facility] HCT 37.9 37.0 - 47.0 % [facility] MCV 86.9 82.0 - 100.0 fL [facility] MCH 28.7 27.0 - 34.0 pg [facility] MCHC 33.0 31.0 - 37.0 g/dL [facility] RDW - SD 40.6 37.0 - 55.0 fL [facility] MPV 9.9 8.8 - 13.2 fL [facility] Platelet count 210 150 - 400 k/uL [facility] Nucleated RBC 0.00 /100 WBC [facility] Neutrophils 61.8 39.0 - 69.0 % [facility] Lymphocytes 27.1 25.0 - 45.0 % [facility] Monocytes 8.3 0.0 - 10.0 % [facility] Eosinophils 2.3 0.0 - 5.0 % [facility] Basophils 0.3 0.0 - 1.0 % [facility] Immature 0.2Comment: "Immature 0.0 - 1.0 % [place] granulocytes granulocytes" (promyelocytes, METHOD IST myelocytes, metamyelocytes) HOSPITAL Specimen Blood Performing Organization Address [facility] [place] [address] PATHOLOGY AND GENOMIC MEDICINE [address] * Basic metabolic panel (02/02/2020 4:40 AM CDT) Only the most recent of 16 results within the time period is included. Sodium 139 135 - 148 mEq/L [facility] Potassium 4.4 3.5 - 5.0 mEq/L [facility] Chloride 97 (L) 98 - 112 mEq/L [facility] CO2 29 24 - 31 mEq/L [facility] Anion gap 13@ANIO 7 - 15 mEq/L [facility] BUN 5 (L) 6 - 20 mg/dL [facility] Creatinine 0.55 0.50 - 0.90 mg/dL [facility] Glucose 166 (H) 65 - 99 mg/dL [facility] Calcium 9.2 8.3 - 10.2 mg/dL [facility] Specimen Blood Performing Organization Address [facility] [place] [address] PATHOLOGY AND GENOMIC MEDICINE [address] * Us duplex venous upper extremity (02/01/2020 9:35 AM CDT) Specimen Narrative Performed At [facility] Vascular U ltrasound Laboratory Upper Extr emity Venous Report [address] [place] [address] Pat.Name: DIANEPIPPA NOEMY floresID: [id number] S t.Date: 02/01/2020 Refer.MD: NEAL MARC MD Exam Time: 9:02:00 AM Study Type:UE Venous Height: 70in Weight: 289lb BSA: 2.44 m2 Age: 12 1970,49Y Sex: FEMALE Sonogrphr: Vivienne Hernandez, RVT, KAROL Oconnell, RCS Pat. Stat.:Inpatient Room: [facility] 04-A Tape Vol: YH/SB, CPT - 4: 95837 Echo Event ID:[id number] Order ID: [id number] Reason for Study:Arm swelling, DVT susp ected. History of left trigeminal neuralgia, diabetes, anxiety , arthritis, asthma, disease of thyroid gland and GERD. Procedures: B-flow imaging, Colorflow, Grayscale/2D, Pulsed wave Doppler Race: C SUMMARY: DUPLEX SCAN OBSERVATIONS Right Left IJ Normal Subclavian Normal Normal Axillary Normal Brachial Normal Basilic Normal Cephalic Normal RIGHT: There is normal compressibility with no evidence of echogenic material noted within the lumen of the visualized veins. Colorflow and Doppler signals are normal. LEFT: There is normal compressibility with no evidence of echogenic material noted within the lumen of the visualized veins. Colorflow and Doppler signals are normal. PRELIMINARY FINDINGS 1. No evidence of venous thrombosis not ed in the visualized upper extremity veins. PHYSICIAN INTERPRETATION Venous examination of the left upper ex tremity and neck demonstrated no evidence of venous thrombosis. FINDINGS: Signed 02/02/2020 10:09 AM Roderick Vega MD, FACS, RPVI Procedure Note Interface, Radiology Results In - 02/02/2020 10:10 AM T Vascular Ultrasound Laboratory Upper Extremity Venous Report [address] [address], [place] [id number] Pat.Name: PIPPA CONTRERAS.ID: [id number] .Date: 02/01/2020 Refer.MD: NEAL MARC MD Exam Time: 9:02:00 AM Study Type:UE Venous Height: 70in Weight: 289lb BSA: 2.44 m2 Age: 12 1970,49Y Sex: FEMALE Sonogrphr: Vivienne Hernandez, RVT, Juan Manuel Nevarez, RVS, RCS Pat. Stat.:Inpatient Room: [facility] 04-A Tape Vol: YMary/JENNIFER, CPT - 4: 24052 Echo Event ID:[id number] Order ID: [id number] Reason for Study:Arm swelling, DVT suspected. History of left trigeminal neuralgia, diabetes, anxiety, arthritis, asthma, disease of thyroid gland and GERD. Procedures: B-flow imaging, Colorflow, Grayscale/2D, Pulsed wave Doppler Race: C SUMMARY: DUPLEX SCAN OBSERVATIONS Right Left IJ Normal Subclavian Normal Normal Axillary Normal Brachial Normal Basilic Normal Cephalic Normal RIGHT: There is normal compressibility with no evidence of echogenic material noted within the lumen of the visualized veins. Colorflow and Doppler signals are normal. LEFT: There is normal compressibility with no evidence of echogenic material noted within the lumen of the visualized veins. Colorflow and Doppler signals are normal. PRELIMINARY FINDINGS 1. No evidence of venous thrombosis note d in the visualized upper extremity veins. PHYSICIAN INTERPRETATION Venous examination of the left upper extremity and neck demonstrated no evidence of venous thrombosis. FINDINGS: Signed 02/02/2020 10:09 AM Roderick Vega MD, FACS, RPVI Performing Organization Address City/State/ZIP Code [facility] Number [facility] [address] [place] [address] * XR Chest 1 Vw Portable (01/30/2020 5:36 AM CDT) Specimen Narrative Performed At EXAMINATION: XR CHEST 1 VW PORTABLE [facility] CLINICAL HISTORY: ICU pt unstable o r clinical worsening COMPARISON: None IMPRESSION: 1.Heart size is within normal limits. 2.No infiltrates or effusions are seen. Vessels are not congested. [id number] Procedure Note Hm Interface, Radiology Results Incoming - 01/30/2020 6:36 AM CDT EXAMINATION: XR CHEST 1 VW PORTABLE CLINICAL HISTORY: ICU pt unstable or clinical worsening COMPARISON: None IMPRESSION: 1.Heart size is within normal limits. 2.No infiltrates or effusions are seen. Vessels are not congested. [id number] Performing Organization Address City/[facility]/ZIP Code P karrie Number [facility] [address] [place] [address] * Vitamin D 25 hydroxy level (01/30/2020 2:25 AM CDT) Vitamin D, 53.8 30.0 - 150.0 ng/mL [place] 25-hydroxy Comment: DRUZE This assay reports the sum of HOSPITAL 25-hydroxy vitamin D3 and 25-hydroxy vitamin D2. Reference range: 0-17 years: Deficiency: less than 20ng/mL Optimum level: greater than or equal to 20 ng/mL. 18 years and older: Deficiency: less than 20ng/mL Insufficiency: 20-29 ng/mL Optimum Level: 30-80 ng/mL The assay reportable range is 3.4 155.9 ng/mL. Levels higher than 150 ng/mL may be associated with toxicity. If toxicity is clinically suspected and the reported result is >155.9 ng/mL,contact lab for alternative methods to obtain a definitive level. If separate quantitation of 25-hydroxy vitamin D3 and 25-hydroxy vitamin D2 is needed, please contact lab for alternative methods. Specimen Blood Performing Organization Address City/[facility]/ZIP Code P kar[place] Number [facility] [address] [place] [address] PATHOLOGY AND GENOMIC MEDICINE [place] [address] [place] [address] * Phosphorus level (01/30/2020 2:25 AM CDT) Only the most recent of 4 results within the time period is included. Phosphorus 3.3 2.4 - 4.5 mg/dL [facility] Specimen Blood Performing Organization Address City/State/ZIP Code P karrie Number [facility] [address] [place] [address] PATHOLOGY AND GENOMIC MEDICINE [place] [facility] [address] [place] [address] * Magnesium level (01/30/2020 2:25 AM CDT) Only the most recent of 5 results within the time period is included. Magnesium 1.8 1.6 - 2.6 mg/dL [facility] Specimen Blood Performing Organization Address City/[facility] [place] [address] PATHOLOGY AND GENOMIC MEDICINE [address] * Ionized calcium (01/30/2020 2:25 AM CDT) Only the most recent of 4 results within the time period is included. pH 7.52 [facility] Ionized calcium 1.09 (L) 1.11 - 1.32 mmol/L [facility] Specimen Blood Performing Organization Address City/[facility] [place] [address] PATHOLOGY AND GENOMIC MEDICINE [address] * Lipid panel (01/30/2020 2:25 AM CDT) Cholesterol 101 <200 mg/dL [facility] Triglycerides 91 <150 mg/dL [facility] HDL cholesterol 44 >40 mg/dL [facility] LDL cholesterol 44Comment: Result obtained by <100 mg/dL [place] direct LDL measurement [facility] Lipid panel [facility] interpretation Comment: [facility] Total Cholesterol (mg/dL) [facility] <200 Desirable 200-239 Borderline-high >=240 High Triglycerides (mg/dL) <150 Normal 150-199 Borderline-high 200-499 High >=500 Very high HDL Cholesterol (mg/dL) <40 Low (male) <40 Low (female) LDL Cholesterol (mg/dL) <100 Optimal 100-129 Near or above optimal 130-159 Borderline-high 160-189 High >=190 Very high Risk Catergories that modify LDL goals. Risk Catergories LDL goal (mg/dL) CHD and CHD risk equivalent <100 (10-year risk >20%) Multiple (2+) risk factors <130 (10-year risk =<20%) 0-1 risk factors <160 (<10-year risk) Defining levels of lipids in metabolic syndrome Triglycerides >=150 mg/dL HDL Cholesterol Men <40 mg/dL Women <40 mg/dL Non-HDL cholesterol is a second target for therapy in persons with high triglycerides (>=200 mg/dL) Specimen Blood Performing Organization Address [facility]/ZIP [facility] [place] [address] PATHOLOGY AND [facility] MEDICINE [address] * Urinalysis, dipstick only (01/29/2020 12:15 PM CDT) pH, UA 6.0 5.0 - 8.5 [facility] Protein, UA Negative Negative [facility] Glucose, UA 3+ (A) Negative [place] Comment: [place] UKET/UGLU results called to HOSPITAL and read back by LAQUITA PATEL/MATILDA (name/location) at 01/29/2020 14:10 ___ (date/time) by _DB_. Ketones, UA 1+ (A) Negative [facility] Bilirubin, UA Negative Negative [facility] Blood, UA Negative Negative [facility] Nitrite, UA Negative Negative [facility] Urobilinogen, <2.[address] [facility] Leukocyte Negative Negative [place] esterase, [facility] Specimen Urine Performing Organization Address [facility]/ZIP [facility] [address] PATHOLOGY [facility] MEDICINE [address] * Beta hydroxybutyrate (01/29/2020 11:32 AM CDT) Only the most recent of 2 results within the time period is included. Beta 1.81 (H) 0.02 - 0.27 mmol/L [facility] Specimen Serum Performing Organization Address City/[facility]/ZIP Code P karrie Number [facility] [place] [address] PATHOLOGY AND [facility] MEDICINE [address] * Thyroid stimulating hormone (01/29/2020 11:26 AM CDT) TSH 0.05 (L) 0.27 - 4.20 uIU/mL [facility] Specimen Blood Performing Organization Address [facility]/ZIP [facility] P karrie Number [facility] [place] [address] PATHOLOGY AND GENOMIC MEDICINE [address] * T4, free (01/29/2020 11:26 AM CDT) T4, free 1.6 0.9 - 1.7 ng/dL [facility] Specimen Blood Performing Organization Address City/[facility] P karrie Number [facility] [address] [place] [address] PATHOLOGY AND GENOMIC MEDICINE [address] * Cortisol level, random (01/29/2020 11:26 AM CDT) Cortisol, 6 ug/dL [place] random Comment: [facility] Reference Ranges are not HOSPITAL established for non-timed Cortisol levels. Reference Range for Timed Cortisol: 6 - 10 AM 6 - 18 ug/dl 4 - 8 PM 3 - 11 ug/dl Specimen Blood Performing Organization Address [facility] [place] [address] PATHOLOGY AND GENOMIC MEDICINE [address] * CT Head Wo Contrast (01/29/2020 8:10 AM CDT) Specimen Narrative Performed At EXAMINATION: CT HEAD WO CONTRAST [facility] COMPARISON: None CLINICAL HISTORY surgical followup. TECHNIQUE: Non-contrast CT scan of the head with thin-section contiguous transaxial images from the skull base t o the vertex. CT scans are performed using radiation dose reduction techniques. Technical factors are evaluated and adjusted to e nsure appropriate moderation of exposure. Automated dose management technology is applied to adjust radiation exposure while achieving a highly diagnostic quality image. FINDINGS: Nonenhanced emergency cranial CT was pe rformed at approximately 0750 hours. There is a small left occipital retroma stoid craniectomy. There is a small amount of air and fluid in the left CP angle cistern. There is a radiopaque pledget in the left CP angle cistern. The ventricles and sulci are normal. There is no edema or hemorrhage or hydr ocephalus. IMPRESSION: Recent postoperative changes in the lef t side of the posterior fossa without acute hemorrhage or hydrocephalus or ed cherri. [facility]-[id number] Procedure Note Hm Interface, Radiology Results Incoming - 01/29/2020 8:16 AM CDT EXAMINATION: CT HEAD WO CONTRAST COMPARISON: None CLINICAL HISTORY surgical followup. TECHNIQUE: Non-contrast CT scan of the head with thin-section contiguous transaxial images from the skull base to the vertex. CT scans are performed using radiation dose reduction techniques. Technical factors are evaluated and adjusted to ensure appropriate moderation of exposure. Automated dose management technology is applied to adjust radiation exposure while achieving a highly diagnostic quality image. FINDINGS: Nonenhanced emergency cranial CT was performed at approximately 0750 hours. There is a small left occipital retromastoid craniectomy. There is a small amount of air and fluid in the left CP angle cistern. There is a radiopaque pledget in the left CP angle cistern. The ventricles and sulci are normal. There is no edema or hemorrhage or hydrocephalus. IMPRESSION: Recent postoperative changes in the left side of the posterior fossa without acute hemorrhage or hydrocephalus or edema. [facility]-[id number] Performing Organization Address City/State/ZIP Code P karrie Number [facility] [address] [place] [address] * Arterial blood gas (01/28/2020 3:12 PM CDT) Only the most recent of 2 results within the time period is included. pH, arterial 7.38 7.35 - 7.45 [facility] pCO2, arterial 32 (L) 35 - 45 mmHg [facility] pO2, arterial 131 (H) 80 - 90 mmHg [facility] Bicarbonate, 18.7 (L) 21.0 - 28.0 mmol/L [facility] Base excess, -5 (L) -2 - 2 mEq/L [facility] O2 saturation, 99 95 - 100 % [facility] Specimen Blood Performing Organization Address City/State/ZIP Code P karrie Number [facility] [address] [place] [address] PATHOLOGY AND GENOMIC MEDICINE [address] * Urinalysis screen and microscopy, with reflex to culture (01/27/2020 5:20 PM CDT) Specimen site Clean catch [facility] Color, UA Straw [facility] Appearance, UA Clear [facility] Specific 1.009 1.001 - 1.035 [place] gravity, UA [facility] pH, UA 5.0 5.0 - 8.5 [facility] Protein, UA Negative Negative [facility] Glucose, UA 3+ (A) Negative [place] Comment: [place] UGLU/UKET results called to HOSPITAL and read back by LYLE ZUNIGA/[email or web address] (name/location) at _ 21:02 01/27/2020 __ (date/time) by __GPO. Ketones, UA 2+ (A) Negative [facility] Bilirubin, UA Negative Negative [facility] Blood, UA Negative Negative [facility] Nitrite, UA Negative Negative [facility] Urobilinogen, <2.[address] [facility] Leukocyte Negative Negative [place] esterase, [facility] Epithelial <1 /HPF [place] cells, [facility] WBC, UA 1 0 - 4 /HPF [facility] RBC, UA <1 0 - 5 /HPF [facility] Bacteria, UA Few None seen [facility] Yeast, UA None seen [facility] Yeast with None seen [place] pseudohyphae[facility]I [facility] Hyaline casts, 1 /LPF [facility] Specimen Urine Performing Organization Address City/[facility]/ZIP Code P karrie Number [facility] [place] [address] PATHOLOGY AND GENOMIC MEDICINE [address] * Urine culture (01/27/2020 5:20 PM CDT) Urine culture SEE COMMENTComment: [place] Bacteriuria screen negative. [facility] Specimen Performing Organization Address City/[facility]/ZIP [facility] [place] [address] PATHOLOGY AND GENOMIC MEDICINE [address] * Blood culture, aerobic & anaerobic (01/27/2020 4:50 PM CDT) Only the most recent of 2 results within the time period is included. Blood culture No growth after 5 days of [place] isolate incubation. [facility] Comment: HOSPITAL Specimen Information Specimen Source: Blood Specimen Site: Antecubital, right Specimen Blood - Antecubital, right Performing Organization Address City/State/[place] [address] PATHOLOGY AND GENOMIC MEDICINE [address] * DKA electrolytes and glucose test (01/27/2020 3:20 PM CDT) Only the most recent of 2 results within the time period is included. Sodium, whole 139 135 - 148 mEq/L [facility] Potassium, 3.6 3.5 - 5.0 mEq/L [facility] Chloride, whole 116 (H) 98 - 112 mEq/L [facility] CO2 calculated, 13 (LL) 24 - 31 mEq/L [facility] Anion gap, 10 5 - 20 mEq/L [facility] Glucose, whole 145 (H) 65 - 99 mg/dL [facility] Specimen Blood Performing Organization Address [facility] P karrie Number [facility] [address] [place] [address] PATHOLOGY AND GENOMIC MEDICINE [address] * Intraoperative monitoring (01/27/2020 1:39 PM CDT) Narrative Performed At This result has an attachment that is n ot available. * Hemoglobin A1c (01/27/2020 1:05 PM CDT) Only the most recent of 3 results within the time period is included. Hemoglobin A1C 10.5 (H) 4.0 - 5.6 % [place] Comment: [place] HbA1c cutoffs for diagnosing HOSPITAL diabetes: 4.0% - 5.6% = normal 5.7% - 6.4% = increased risk for diabetes (prediabetes)9 >=6.5% = diabetes9 Goals for glycemic control (ADA 2016) < 7.0% Target for non adults with diabetes. More or less stringent targets may be appropriate for individual patients. <7.5% Target for Children and adolescents with type 1 diabetes. Specimen Blood Narrative Performed At _DKA results called to and read back by _BARB WHEELER/ WT11(name/location) [facility] at __ 01/27/2020 13:35 (date/time) by _AD_. PATHOLOGY AND ?STAT and Every 2 Hours x2 (Followed by DKA electroly suzette and GENOMIC MEDICINE ?glucose test every 4 hours x3) ?This test includes: Sodium, Potassium, Chloride, CO2, Anion ?Gap, and Glucose Performing Organization Address City/[facility]/ZIP Code P karrie Number [facility] [address] [place] [address] PATHOLOGY AND GENOMIC MEDICINE [address] * Comprehensive metabolic panel (01/27/2020 12:33 PM CDT) Only the most recent of 3 results within the time period is included. Sodium 137 135 - 148 mEq/L [facility] Potassium 4.4 3.5 - 5.0 mEq/L [facility] Chloride 101 98 - 112 mEq/L [facility] CO2 12 (LL) 24 - 31 mEq/L [facility] Anion gap 24@ANIO (H) 7 - 15 mEq/L [facility] BUN 7 6 - 20 mg/dL [facility] Creatinine 0.57 0.50 - 0.90 mg/dL [facility] Glucose 136 (H) 65 - 99 mg/dL [facility] Calcium 8.5 8.3 - 10.2 mg/dL [facility] Protein 6.5 6.3 - 8.3 g/dL [place] Comment: [facility] [place] 4.6-7.0 g/dL 1 week 4.4-7.6 g/dL 7 months-1year 5.1-7.3 g/dL 1-2 years 5.6-7.5 g/dL >3 years 6.0-8.0 g/dL 18-150 6.3-8.3 g/dL Albumin 3.3 (L) 3.5 - 5.0 g/dL [facility] A/G ratio 1.0 0.7 - 3.8 [facility] Alkaline 103 35 - 104 U/L [place] phosphatase [facility] AST 27 10 - 35 U/L [facility] ALT 11 5 - 50 U/L [facility] Total bilirubin <0.2 0.0 - 1.2 mg/dL [facility] Specimen Blood Narrative Performed At _DKA results called to and read back by _BARB WHEELER/ [email or web address](name/location) [facility] at __ 01/27/2020 13:35 (date/time) by _AD_. PATHOLOGY AND ?STAT and Every 2 Hours x2 (Followed by DKA electroly suzette and GENOMIC MEDICINE ?glucose test every 4 hours x3) ?This test includes: Sodium, Potassium, Chloride, CO2, Anion ?Gap, and Glucose Performing Organization Address City/State/ZIP Code P karrie Number [facility] [address] * Lactic acid level (01/27/2020 7:35 AM CDT) [facility] Lactic acid 0.8 0.5 - 2.2 mmol/L [facility] Specimen Blood Performing Organization Address City/[facility]/ZIP Code P karrie Number [facility] [address] * Partial thromboplastin time, activated (01/27/2020 2:25 AM CDT) Only the most recent of 2 results within the time period is included. [facility] PTT 30.0 23.0 - 36.0 sec [place] Comment: [facility] PTT therapeutic range for HOSPITAL unfractionated heparin is 61.0-112.0 seconds which corresponds to Anti-Xa 0.3-0.7 U/ml. Specimen Blood Performing Organization Address [facility] P karrie Number [facility] [address] * Prothrombin time with INR (01/27/2020 2:25 AM CDT) Only the most recent of 2 results within the time period is included. [facility] Prothrombin 14.1 11.5 - 14.5 sec [facility] INR 1.1 [place] Comment: [place] The International Normalized HOSPITAL Ratio (INR) is a therapeutic monitoring tool for patients who are stable on oral anticoagulant therapy. An INR of 2.0-3.0 is suggested for deep vein thrombosis/pulmonary embolism. Specimen Blood Performing Organization Address City/[facility] P karrie Number [address] * Airway (01/26/2020 4:31 PM CDT) Narrative Performed At Radha Amaral MD 01/26/2020 4:32 PM Airway Date/Time: 01/26/2020 3:20 PM Performed by: Radha Amaral MD Authorized by: Radha Amaral MD Location: OR Urgency: Elective Difficult Airway: No Anesthesiologist: Radha Amaral MD Resident/GAS ENGINE OPERATOR COMPRESSORS/AA: Nazia Mac M D Preoxygenated with 100% O2: Yes C-spine Precautions Maintained Througho ut: Yes Mask Ventilation: Easy mask Final Airway Type: Endotracheal airwa y Final Endotracheal Airway: ETT Cuffed: Yes Insertion Site: Oral Blade Type: Lan Laryngoscope Blade/Videolaryngoscope Bl pili Size: 2 ETT Size (mm): 7.0 Cuff at minimum occlusion pressure: Yes Measured from: Teeth ETT to Teeth (cm): 22 Placement Verified by: CO2 detection an d direct visualization Number of Attempts at Approach: 1 Atraumatic * Surgical pathology request (01/26/2020 8:52 AM CDT) [facility] PATHOLOGY AND GENOMIC MEDICINE Surgical See link below for PDF Lab [facility] pathology Report OF PATHOLOGY report AND GENOMIC MEDICINE Result status This is Final Report for [facility] [id number] OF PATHOLOGY AND GENOMIC MEDICINE Specimen Performing Organization Address [facility] P karrie Number [facility] [address] [place] [address] PATHOLOGY AND GENOMIC MEDICINE * CBC hemogram (01/26/2020 8:35 AM CDT) WBC 8.38 4.50 - 11.00 k/uL [facility] RBC 5.05 4.20 - 5.50 m/uL [facility] HGB 14.4 12.0 - 16.0 g/dL [facility] HCT 41.4 37.0 - 47.0 % [facility] MCV 82.0 82.0 - 100.0 fL [facility] MCH 28.5 27.0 - 34.0 pg [facility] MCHC 34.8 31.0 - 37.0 g/dL [facility] RDW - SD 38.2 37.0 - 55.0 [facility] MPV 10.0 8.8 - 13.2 fL [facility] Platelet count 199 150 - 400 k/uL [facility] Nucleated RBC 0.00 /100 WBC [facility] Specimen Blood Performing Organization Address [facility] Code P karrie Number [facility] [address] [place], [place] [id number] PATHOLOGY AND GENOMIC MEDICINE [address] * COVID-19 qualitative PCR (01/22/2020 6:26 PM CDT) Pathologist [facility] Interpretation Negative results do not [place] preclude 2019-nCoV infection [facility] and should not be used as the HOSPITAL sole basis for treatment or other patient management decisions. Negative results must be combined with clinical observations, patient history, and epidemiological information. COVID-19 Not-Detected Not-Detected [place] qualitative PCR [facility] result HOSPITAL COVID-19 See link below for PDF Lab [place] qualitative PCR ReportComment: Case Number: [facility] [id number] HOSPITAL Specimen Nasopharyngeal swab Performing Organization Address [facility] P karrie Number [facility] [place] [address] PATHOLOGY AND [facility] MEDICINE [address] * ECG Pre/Post Op (01/22/2020 6:07 PM CDT) Pathologist [facility] Ventricular 98 [facility] rate Atrial rate 98 [facility] RI interval 144 [facility] QRSD interval 86 [facility] QT interval 366 [facility] QTC interval 467 [facility] P axis 1 66 [facility] QRS axis 1 85 [facility] T wave axis 37 [facility] EKG impression Normal sinus rhythm-Cannot [facility] rule out Inferior infarct , age undetermined-Abnormal ECG-No previous ECGs available- Specimen Narrative Performed At This result has an attachment that is n ot available. Performing Organization Address City/[facility] Code P karrie Number [facility] [address] [place] [address] * Type and screen (01/22/2020 5:56 PM CDT) ABO grouping O [facility] Rh type POS [facility] Antibody screen NEG [place] (gel) [facility] Specimen Blood Performing Organization Address City/[facility] P karrie Number [facility] [place] [address] PATHOLOGY AND GENOMIC MEDICINE [address] * MRI Head External Study (10/16/2019 12:00 AM CDT) Specimen Narrative Performed At This exam was not acquired at a [facility] facility an d has not been [facility] interpreted by a [employer] Provider. The exam was imported into our imaging system. Performing Organization Address City/State/ZIP Code P karrie Number [facility] [address] [place] [address] after 02/16/2019 Insurance Type Payer Benefit Subscriber ID Effective Phone Address Plan / Dates Group PPO BCBS BCBS [id number] [id number] CHOICE resent PPO/DEN MAZARIEGOS PPO Advance Directives For more information, please contact: [phone] Patient Loading Inspector Explanation Type Date Recorded Advance Directives, Living Will and Medical Power of Personnel Administrator
--- OUTSIDE RECORDS SUMMARY | 2020-02-17 21:16 | XMS REPORT | Clinical Summary ---
Author Author [facility] Address Unknown Phone Unavailable Care Team Providers Care Rn Intake Name Role Phone PCP Unavailable Allergies Not on File Medications Not on file Active Problems Not on file Social History Date Tobacco Use Types Packs/Day Years Used Never Assessed Sex Assigned at Date Recorded Not on file Last Filed Vital Signs Not on file Plan of Treatment Not on file Results Not on fileafter 02/16/2019 Insurance Type Payer Benefit Subscriber ID Effective Phone Address Plan / Dates Group PPO BLUE CROSS/BLUE SHIELD BCBS PPO [id number] 2009-P [address] EPO resent [id number] [place] [address]
--- OUTSIDE RECORDS SUMMARY | 2020-02-17 21:17 | XMS REPORT | Continuity of Care Document ---
Author Author [facility] t Organization [facility] Address [address] [place] [address] Phone Unavailable Care Team Providers Care Electroencephalograph Technician Name Role Phone Pradip CHERY, Guanakito Santana PCP [phone] Beth Suarez MD Attphys Regina Wooten LVN Attphys Unavailable Munir CHERY, Radha Attphys Terri Vazquez APRN Attphys Morena ZAMBRANO Attphys Unavailable YANDY HUBBARD Attphys Unavailable Guanakito Moseley Attphys Amando Bermudez Attphys [place] ARCHER Attphys Unavailable BRIGETTE SUAREZ Admphys Unavailable Payers Payer Name Policy Type Policy Number Effective Date Expiration Date S ource BCBSBCBS CHOICE PPO/FEDERAL EMPL [id number] 2018-PresentPPO [id number] 2018 00:00:00 Gage Bradshaw Problems Condition Name Condition Details Condition Category Status Onset Date Resolution Date Last Treatment Date Treating Clinician Comments Source Trigeminal neuralgia of left side of face Trigeminal n euralgia of left side of face Disease Active 2020-01-21 00:00:00 Swati Bradshaw Type 2 diabetes mellitus with hyperglyce demi, without long-term current use of insulin Type 2 diabetes mellitus with hyperglyce demi, without long-term current use of insulin Disease Active 2020-01-21 00:00:00 Gage Bradshaw Acquired hypothyroidism Acquired hypothyroidism Disease Active 2020-01-21 00:00:[address] Class 3 severe obesity due to excess luh ories with serious comorbidity and body mass index (BMI) of 40.0 to 44.9 in adult Class 3 severe obesity due to excess calories with serious comorbidity and body mass index (BMI) of 40.0 to 44.9 in adult Disease Active 2020-01-21 00:00:00 [facility] negin Bradshaw R49.0 R49. 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; GERD Active 12/12/2017 [facility] Diagnosis Active 2017-12-12 00:00:00 2018-01-14 08:36:00 Sandra Wade ESOPAHGEAL NODULE; ESOPHAGEAL POLYPS ESOPAHGEAL NODULE; ESOPHAGEAL POLYPS Active 12/12/2017 [facility] Diagnosis Active 2017-12-12 00:00:00 2018-01-21 08:23:00 Sandra LEÓN PT CONSULT- NEW PT CONSULT- Active 10/22/2017 [facility] Diagnosis Active 2017-10-22 00:00:00 2017-12-09 0 9:03:00 Sandra Wade Allergic rhinitis Allergic rhinitis Problem [facility] Sinusitis - Chronic Sinusitis - Chronic Problem [facility] Arthralgia of bilateral temporomandibular joint Arthra lgia of bilateral temporomandibular joint Problem Active [facility] Cough Cough Diagnosis Active [facility] Hoarseness Hoarseness Problem Active [facility] Edema of larynx Edema of larynx Problem Active [facility] Chronic laryngitis (LPRD) Chronic laryngitis (LPRD) Problem Active [facility] Acute nasopharyngitis Acute nasopharyngitis Problem Active [facility] Sinusitis - Acute Sinusitis - Acute Problem Active [facility] Chronic rhinitis Chronic rhinitis Problem Active [facility] Otalgia * Otalgia * Problem Active [facility] Wheezing Wheezing Problem Active [facility] Otalgia, left ear Otalgia, left ear Problem Active [facility] GERD GERD Problem Active [facility] Thrush Candidiasis Thrush Candidiasis Problem Active [facility] Hypertrophy of tonsil with adenoids Hypertrophy of tonsil with a denoids Problem Active [facility] Postnasal drip Postnasal drip Problem Active [facility] Pain in throat Pain in throat Problem Active [facility] Otalgia, bilateral Otalgia, bilateral Problem Active [facility] Acute lymphadenitis Acute lymphadenitis Problem Active [facility] Recurrent oral aphthae Recurrent oral aphthae Problem Active [facility] Nasal airway obstruction Nasal airway obstruction Problem Active [facility] Sinusitis - Chronic Sinusitis - Chronic Diagnosis Active [facility] Asthma, other Asthma, other Problem Active [facility] Allergic rhinitis due to pollen Allergic rhinitis due to pollen Pro blem Active [facility] Headache Headache Diagnosis Active [facility] Dysphagia Dysphagia Problem Active [facility] Nasal airway obstruction Nasal airway obstruction Diagnosis Active [facility] Atypical facial pain Atypical facial pain Problem Active [facility] Nasal congestion Nasal congestion Problem Active [facility] Cough Coug h 08/10/2018 [facility] Problem 2018-08-10 11:31:44 Radha Wade Dysphagia, unspecified Dysp hagia, unspecified 08/03/2018 [facility] Problem 2018-08-03 11:38:49 Sandra Wade Other specified diseases of esophagus Other specified diseases of esophagus 06/28/2018 [facility] Problem 2018-06-28 12:25:12 Sandra Wade Acute gastritis without bleeding Acute gastritis without bleeding 08/10/2018 [facility] Problem 2018-08-10 11:31:44 Sandra Wade Anxiety disorder, unspecified Anxiety disorder, unspecified 08/10/2018 [facility] Problem 2018-08-10 11:31:44 Sandra Wade Type 2 diabetes mellitus without complications Type 2 diabetes mellitus without complications 08/10/2018 [facility] Problem 2018-08-10 11:31:44 Sandra Wade senior living (current) use of insulin senior living (current) use of insulin 06/28/2018 [facility] Problem 2018-06-28 12:25:12 Sandra Wade Personal history of colonic polyps Personal history of colonic polyps 06/28/2018 [facility] Problem 2018-06-28 12:25:12 Sandra Wade Personal history of nicotine dependence Personal history of nicotine dependence 06/28/2018 [facility] Problem 2018-06-28 12:25:12 Sandra Wade Unspecified osteoarthritis, unspecified site Unspecified osteoarthritis, unspecified site 08/10/2018 [facility] Problem 2018-08-10 11:31:44 Sandra mayo Family history of diabetes mellitus Family history of diabetes mellitus 06/28/2018 [facility] Problem 2018-06-28 12:25:12 [facility] [place] Family history of stroke Fami ly history of stroke 06/28/2018 [facility] Problem 2018-06-28 12 :25:12 Sandra Wade Gastro-esophageal reflux disease without esophagitis Gastro-esophageal reflux disease without esophagitis 12/06/2018 [facility] Problem 2018-12-06 11:03:41 [facility] Unspecified asthma, uncomplicated Unspecified asthma, uncomplicated 12/06/2018 [facility] Problem 2018-12-06 11:0 3:41 [facility] Obesity, unspecified Obes ity, unspecified 08/10/2018 [facility] Problem 2018-08-10 11:31:44 [facility] Diaphragmatic hernia without obstruction or gangrene Diaphragmatic hernia without obstruction or gangrene 08/10/2018 [facility] Problem 2018-08-10 11:31:44 Lit Wade Disorder of thyroid, unspecified Disorder of thyroid, unspecified 08/10/2018 [facility] Problem 2018-08-10 11:31:44 [facility] Body mass index (BMI) 45.0-49.9, adult Body mass index (BMI) 45.0-49.9, adult 08/10/2018 [facility] Problem 2018-08-10 11:31:44 [facility] Acute gastritis (disorder) Acu te gastritis (disorder) Resolved Problem 12/06/2018 [facility] Problem Reso lved 2018-12-06 11:03:41 [facility] gael Anxiety (finding) Anxi ety (finding) Resolved Problem 12/06/2018 [facility] Problem Resolved 2018-12-06 11:03:41 [facility] Arthritis (disorder) Arth ritis (disorder) Resolved Problem 12/06/2018 [facility] Problem Resolved 2018-12-06 11:03:41 [facility] Diabetes mellitus (disorder) D iabetes mellitus (disorder) Resolved Problem 12/06/2018 [facility] Problem Resolved 2018-12-06 11:03:41 Radha Wade Disease of thyroid gland (disorder) Disease of thyroid gland (disorder) Resolved Problem 12/06/2018 [facility] Problem Resolved 2018-12-06 11:03:41 [facility] Hiatal hernia (disorder) Hiat al hernia (disorder) Resolved Problem 12/06/2018 [facility] Problem Resolved 2018-12-06 11:03:41 [facility] Mauro Inflammatory bowel disease (disorder) Inflammatory bowel disease (disorder) Resolved Problem 12/06/2018 [facility] Problem Resolved 2018-12-06 11:03:41 [facility] [place] Polyp of colon (disorder) Poly p of colon (disorder) Resolved Problem 12/06/2018 [facility] Problem Reso lved 2018-12-06 11:03:41 [facility] mayo Dysphonia Dysp honia 05/23/2018 12/06/2018 [facility] Problem 2018-05-23 06:26:23 2018-12-06 11:03:41 2018-12-06 11:03:41 [facility] Mauro Disease of esophagus, unspecified Disease of esophagus, unspecified 03/30/2018 08/10/2018 [facility] Problem 2018-03-30 05:30:49 2018-08-10 11:31:44 2018-08-10 11:31:44 Sundar Wade Allergies, Adverse Reactions, Alerts Allergy Name Allergy Type Status Severity Reaction(s) Onset Date Inacti ve Date Treating Clinician Comments Source Morphine Propensity to adverse reactions to drug Active Other (See Comments) 2020-01-22 00:00:00 Reverse reaction - Pain, sw eating , insomnia Gage Bradshaw No Known Medication Allergies No Known Medication Allergies Active Sandra Wade Family History Family Member Diagnosis Comments Start Date Stop Date Source Natural father Cancer [facility] Natural father [facility] Natural father Heart disease Gage Maguireist Natural mother Hypertension Gage Bradshaw Social History Social Habit Start Date Stop Date Quantity Comments Source History of tobacco use Current smoker Gage Bradshaw Sex Assigned At [employer] eduardo Bradshaw Exposure to SARS-CoV-2 (event) Not sure Gage Bradshaw Cigarettes smoked current (pack per day) - Reported 00:00:00 2020-01-27 00:00:00 Gage Bradshaw Cigarette pack-years 2020-01-27 00:00:00 2020-01-27 00:00:00 Gage Bradshaw Tobacco use and exposure 2020-01-27 00:00:00 2020-01-27 00:00:00 Nasir verduzco used Gage Bradshaw Alcohol intake 2020-01-27 00:00:00 2020-01-27 00:00:00 Current drinker of alcohol (finding) Gage Bradshaw Alcohol Comment 2020-01-21 00:00:00 2020-01-21 00:00:00 once a month Gage Bradshaw Social History 2017-12-09 14:14:42 2017-12-09 14:14:42 [facility] Smoking Status Start Date Stop Date Source Former smoker 2020-01-27 00:00:00 2020-01-27 00:00:00 Gage Bradshaw Medications Ordered Medication Name Filled Medication Name Start Date Stop Da te Current Medication? Ordering Clinician Indication Dosage Frequency Signature (SIG) Comments Components Source FLUoxetine (PROzac) 20 MG capsule 2020-02-03 00:00:00 2019 23:59:00 Yes 20mg QD Take 1 capsule (20 mg total) by mouth ev julianna morning for 30 days. Gage Bradshaw oxcarbazepine (OXTELLAR XR ORAL) 2020-02-02 16:20:44 2020-01 00:00:00 No 1500mg QD Take 1,500 mg by mouth every evening. Gage Bradshaw baclofen (LIORESAL) 20 MG tablet 2020-02-02 16:20:44 2020-01 00:00:00 No 20mg Q.[id number] Take 20 mg by mouth 3 (three) times a day. Gage Bradshaw amitriptyline (ELAVIL) 100 MG tablet 2020-02-02 16:20: 44 2020-02-02 00:00:00 No 100mg QD Take 100 mg by mouth nightly. Gage Bradshaw empagliflozin (Jardiance) 10 mg tablet tablet 20 15-02-06 16:20:44 2020-02-02 00:00:00 No 10mg QD Take 10 mg by mouth every eveni ng. Gage Bradshaw thyroid, pork, (ARMOUR THYROID) 60 mg tablet 16:20:44 2020-02-02 00:00:00 No 60mg QD Take 60 mg by mouth every eveni ng. Gage Bradshaw cetirizine (ZyrTEC) 10 MG chewable tablet 2020-02-02 16:20:43 Yes 10mg QD Chew 10 mg every evening. Dilia Bradshaw metFORMIN (GLUCOPHAGE) 500 mg tablet 2020-02-02 16:20:43 Ye s 500mg Q.5D Take 500 mg by mouth 2 (two) times a day with meals. Gage Bradshaw pantoprazole (PROTONIX) 40 MG EC tablet 2020-02-02 16:20:43 Yes 40mg QD Take 40 mg by mouth daily. Gage Lucas dist montelukast (SINGULAIR) 10 mg tablet 2020-02-02 16:20:43 Ye s 10mg QD Take 10 mg by mouth nightly. Gage wolf rosuvastatin (CRESTOR) 10 mg tablet 2020-02-02 16:20:43 Yes 10mg QD Take 10 mg by mouth every evening. Gage Kwok ethodist losartan (COZAAR) 25 MG tablet 2020-02-02 16:20:43 Yes 25mg QD Take 25 mg by mouth every evening. Gage flowers fluticasone propionate (FLONASE) 50 mcg/actuation nasal spra y 2020-02-02 16:20:43 Yes 2{spray} QD 2 sprays by Each Nare route daily. Gage Bradshaw benzonatate (TESSALON) 100 MG capsule 2020-02-02 16:20:43 Yes 100mg Q.[id number] Take 100 mg by mouth 3 (three) times a d ay as needed for cough. Gage Bradshaw omega 4-uds-orh-fish oil (Fish Oil) 100-160-1,000 mg capsule 2020-02-02 16:20:43 Yes Take by mouth. Gage Bradshaw biotin-keratin 10,000-100 mcg-mg tablet 2020-02-02 16:20:43 Yes Take by mouth. Gage Bradshaw calcium carbonate/vitamin D3 (CALCIUM 600 WITH VITAMIN D3 OR AL) 2020-02-02 16:20:43 Yes Take by mouth. Gage Bradshaw vitamin D3-folic acid 5,000 unit- 1 mg tablet 2020-02-02 16:20:4 3 Yes QD Take by mouth daily. Gage wolf ascorbic acid, vitamin C, (VITAMIN C) 500 MG tablet 2019-04 006 16:20:43 Yes 500mg QD Take 500 mg by mouth daily. Gage Bradshaw Bifidobacterium infantis (ALIGN ORAL) 2020-02-02 16:20:43 Y es Take by mouth. Gage Bradshaw methylcellulose (FIBER THERAPY, M-CELLULOSE, ORAL) 2020-01 16:20:43 Yes QD Take by mouth every evening. FIBER THERA PY Gage Bradshaw therapeutic multivitamin (THERAGRAN) tablet 2020-02-02 16:20:43 Yes 1{tbl} QD Take 1 tablet by mouth daily. Womens' daily Gage Bradshaw pregabalin (LYRICA) 75 MG capsule 2020-02-02 11:57:04 2019 00:00:00 No 150mg Q.5D Take 150 mg by mouth 2 (two) times a day . Gage Bradshaw ALPRAZolam (XANAX) 1 MG tablet 2020-02-02 11:57:04 2020-02-02 00 :00:00 No 1mg QD Take 1 mg by mouth nightly as needed for anxiety. Gage Bradshaw thyroid, pork, 15 mg tablet 2020-02-02 00:00:00 Yes 45mg QD Take 3 tablets (45 mg total) by mouth daily. Nando Bradshaw pregabalin (LYRICA) 100 MG capsule 2020-02-02 00:00:00 2020-03-03 23:59:00 Yes 100mg Q.5D Take 1 capsule (100 mg total) by mouth 2 (two) times a day for 30 days. Gage Bradshaw valACYclovir (VALTREX) 1000 MG tablet 2020-02-02 00:00 :00 2020-03-03 23:59:00 Yes 1000mg Q.5D Take 1 tablet ( 1,000 mg total) by mouth 2 (two) times a day for 30 days. Gage Bradshaw carBAMazepine (TEGretol) 200 mg tablet 00:00:00 2020-02-23 23:59:00 Yes Take 1 tablet (200 mg total) by mouth 3 (three) times a day for 7 days, THEN 1 tablet (200 mg total) 2 (two) times a day for 7 days, THEN 1 tablet (200 mg total) daily for 7 days. Gage Bradshaw enoxaparin (Lovenox) 40 mg/0.4 mL syringe 2019-04 00:00:00 2020-02-12 23:59:00 No deep vein thrombosis prevention 40mg QD Inject 0.4 mL (40 mg total) under the skin daily for 10 days .deep vein thrombosis prevention. Gage Bradshaw ALPRAZolam (XANAX) 0.25 MG tablet 2020-02-02 00:00:00 2019 23:59:00 No .25mg QD Take 1 tablet (0 .25 mg total) by mouth nightly as needed for anxiety for up to 7 days. Gage Bradshaw carBAMazepine (TEGretol) 200 mg tablet 6 00:00:00 2020-02-02 00:00:00 No 200mg Q.25D Take 1 tablet (200 mg total) by mouth every 6 (six) hours for 30 days. Gage Bradshaw insulin ASPART protamine and insulin ASP ART (NovoLOG 70/30) 100 unit/mL (70-30) insulin pen 2020-02-01 00:00:00 Yes Inject 10 units twice a day with food. Gage Bradshaw pen needle, diabetic (Pen Needle) 31 gauge x 5/16" needle 2020-02-01 00:00:00 Yes Inject twice a day. Gage Bradshaw Biaxin Biaxin 2018-08-08 00:00:00 Yes Esther Moseley 1 tablet [facility] Astelin Astelin 2018-08-08 00:00:00 Yes Esther Moseley 2 sprays in each nostril [facility] Auvi-Q Auvi-Q 2018-07-07 00:00:00 Yes Esther Moseley a s directed [facility] Amitriptyline HCl Amitriptyline HCl 2018-02-21 00:00:00 Yes Esther Moseley 1 tablet [facility] Hydrocortisone 25 MG/ML Topical Cream [Anusol HC] 2017-12-09 15:13:00 No 1 appl, [place], BID, X 1 4 day, # 30 gm, 2 Refill(s), Pharmacy: [facility] [id number] [facility] [place] thyroid (MCC) 60 MG Oral Tablet [Twilight Thyroid] 2017-12-09 14:15:00 Yes 60 mg = 1 tab, PO, Daily, 0 Refill(s) Sandra Wade biotin 2017-12-09 14:15:00 Yes PO, Daily, 0 Refill(s) [facility] [place] Fish Oil 2017-12-09 14:15:00 Yes 1,200 mg, P O, 0 Refill(s) Sandra Wade Cetirizine 2017-12-09 14:15:00 Yes 1 0 mg, PO, Daily, 0 Refill[facility]) [facility] celecoxib 2017-12-09 14:15:00 Yes 200 mg, PO , 0 Refill(s) Sandra Wade Multiple Vitamins oral tablet 2017-12-09 14:15:00 Yes PO, Daily, 0 Refill(s) Sandra Wade benzonatate 100 mg oral capsule 2017-12-09 14:15:00 Yes 100 mg = 1 cap, PO, TID, 0 Refill(s) Sandra Boogie nn Vitamin D3 2017-12-09 14:15:00 Yes 5 ,000 IntlUnit, PO, 0 Refill(s) Sandra Wade pantoprazole 2017-12-09 14:15:00 Yes 40 mg, PO, Daily, # 30 tab, 0 Refill(s) Sandra Santosann Linagliptin 5 MG Oral Tablet [Tradjenta] 2017-12-09 14:15:00 Yes 5 mg = 1 tab, PO, Daily, 0 Refill(s) Memor ial [facility] Xanax 2017-12-09 14:15:00 Yes 1 mg, PO, TID, 0 Refill(s) Sandra Bonsall canagliflozin 300 MG Oral Tablet [Invokana] 2017-12-09 14:15:00 Yes 300 mg = 1 tab, PO, Before Breakfast, # 30 tab, 5 Refill(s) Sandra Mauro Singulair 2017-12-09 14:15:00 Yes 10 mg, PO, Daily, 0 Refill(s) Sandra Wade 60 ACTUAT Fluticasone propionate 0.05 MG/ACTUAT Dry Powder I nhaler 2017-12-09 14:15:00 Yes INHALATION, BID, 0 Refill(s) Sandra Mauro Amitriptyline 2017-12-09 14:15:00 Yes 50 mg, PO, Bedtime, 0 Refill(s) Sandra Santosann Calcium 600 +D oral tablet 2017-12-09 14:15:00 Yes 1 tab, PO, TID, 0 Refill(s) Sandra Mauro Bifidobacterium Infantis 4 MG Oral Capsule [Align] 2017-11 14:15:00 Yes 4 mg = 1 cap, PO, Daily, # 28 cap, 0 Ref ill(s) Sandra Bonsall EpiPen 2-Geremias EpiPen 2-Geremias 2015-08-25 00:00:00 Yes Esther Marcu m Inject 0.3 mg by intramuscular route into the outer thigh once NEEDED for anaphylaxis and then call 911 [facility] Align Align Yes Esther Moseley as directed [facility] GlipiZIDE GlipiZIDE Yes Esther Moseley not define d [facility] Flonase Flonase Yes Esther Moseley not defined [facility] Flonase Flonase Yes Esther Moseley 1 spray in eac h nostril [facility] Tradjenta Tradjenta Yes Esther Moseley not define d [facility] Singulair Singulair Yes Esther Moseley not define d [facility] Invokana Invokana Yes Esther Moseley 1 tablet [facility] Prilosec Prilosec Yes Esther Moseley not defined [facility] Zantac 150 Maximum Strength Zantac 150 Maximum Strength Yes Esther Moseley not defined [facility] T Azelastine HCl Azelastine HCl Yes Esther Moseley One spray in each nostril [facility] Singulair Singulair Yes Esther Moseley One tablet (10mg) [facility] Twilight Thyroid Twilight Thyroid Yes Esther Moseley not defined [facility] Fiber Therapy Fiber Therapy Yes Esther Moseley 2 tablets as needed [facility] Actos Actos Yes Esther Moseley not defined [facility] Biotin Biotin Yes Esther Moseley not defined [facility] Claritin Claritin Yes Esther Moseley not defined [facility] ProAir HFA ProAir HFA Yes Esther Moseley Inhale t wo puffs [facility] Dulera Dulera Yes Esther Moseley not defined [facility] ProAir HFA ProAir HFA Yes sEther Moseley Inhale t wo puffs [facility] Symbicort Symbicort Yes Esther Moseley Inhale two puffs [facility] Immunizations Ordered Immunization Name Filled Immunization Name Date Status Comments Source FLUCELVAX QUAD PF 2020-01-29 00:00:00 Completed Gage Bradshaw Vital Signs Vital Name Observation Time Observation Value Comments Source Systolic blood pressure 2020-02-02 15:19:41 125 mm[Hg] Gage Bradshaw Diastolic blood pressure 2020-02-02 15:19:41 80 mm[Hg] Gage Bradshaw Heart rate 2020-02-02 15:19:41 83 /min Gage Bradshaw Body temperature 2020-02-02 15:19:41 36.5 Kirstin Hous ton [facility] Respiratory rate 2020-02-02 15:19:41 18 /min Swati Bradshaw Oxygen saturation in Arterial blood by Pulse oximetry 2019-04 15:19:41 100 /min Gage Bradshaw Body weight 2020-01-30 05:00:00 131.135 kg Gage Bradshaw BMI 2020-01-30 05:00:00 41.48 kg/m2 Gage Bradshaw Body height 2020-01-27 00:07:00 177.8 cm Gage Bradshaw BMI Calculated 2017-12-09 14:03:00 Memori al Mauro Weight 2017-12-09 14:03:00 [facility] [place] Height 2017-12-09 14:03:00 177.8 cm [facility] [place] Systolic (mm Hg) 2017-12-09 14:03:00 Lit holger Mauro Diastolic (mm Hg) 2017-12-09 14:03:00 [facility] [place] Heart Rate 2017-12-09 14:03:00 [facility] [place] Respitory Rate 2017-12-09 14:03:00 Farrah al [facility] Procedures Procedure Date / Time Performed Performing Clinician Sourc e POC GLUCOSE 2020-02-02 11:34:00 Brigette Suarez Meth odist POC GLUCOSE 2020-02-02 07:26:00 Brigette Suarez Meth odist BASIC METABOLIC PANEL 2020-02-02 04:40:00 Irish Lala HC COMPLETE BLD COUNT W/AUTO DIFF 2020-02-02 04:40:00 Caterina Lala ESTIMATED GFR 2020-02-02 04:40:00 Irish Lala POC GLUCOSE 2020-02-01 17:56:00 Brigette Suarez odist POC GLUCOSE 2020-02-01 14:32:00 Brigette Suarez odist POC GLUCOSE 2020-02-01 12:11:00 Brigette Suarez odkatina US DUPLEX VENOUS UPPER EXTREMITY LEFT 2020-02-01 09:35:00 Carl Andrew POC GLUCOSE 2020-02-01 08:03:00 Brigette Suarez Meth odist POC GLUCOSE 2020-02-01 04:33:00 Brigette Suarez Meth odist POC GLUCOSE 2020-01-31 22:18:00 Brigette Suarez Meth odist POC GLUCOSE 2020-01-31 19:43:00 Brigette Suarez Meth odist POC GLUCOSE 2020-01-31 17:10:00 Brigette Suarez Meth odist POC GLUCOSE 2020-01-31 12:09:00 Brigette Suarez Meth odist POC GLUCOSE 2020-01-31 07:57:00 Brigette Suarez Meth odist POC GLUCOSE 2020-01-30 20:39:00 Brigette Suarez Meth odist POC GLUCOSE 2020-01-30 17:20:00 Brigette Suarez Meth odist POC GLUCOSE 2020-01-30 11:35:00 Brigette Suarez Meth odist POC GLUCOSE 2020-01-30 08:30:00 Brigette Suarez odist XR CHEST 1 VW PORTABLE 2020-01-30 05:36:28 Kathryn Turner BASIC METABOLIC PANEL 2020-01-30 02:25:00 Kathryn Turner HC COMPLETE BLD COUNT W/AUTO DIFF 2020-01-30 02:25:00 Kathryn Allen IONIZED CALCIUM 2020-01-30 02:25:00 Kathryn Turner MAGNESIUM LEVEL 2020-01-30 02:25:00 Kathryn Turner PHOSPHORUS LEVEL 2020-01-30 02:25:00 Kathryn Turner VITAMIN D 25 HYDROXY LEVEL 2020-01-30 02:25:00 Kathryn Turner LIPID PANEL 2020-01-30 02:25:00 Sandra Millan Met hodist ESTIMATED GFR 2020-01-30 02:25:00 Sandra Millan Met hodist POC GLUCOSE 2020-01-29 21:07:00 Brigette Suarez Meth odist POC GLUCOSE 2020-01-29 20:13:00 Brigette Suarez Meth odist POC GLUCOSE 2020-01-29 15:37:00 Brigette Suarez Meth odist HC URINALYSIS CHEMICAL 2020-01-29 12:15:00 PerlaRenanduyen Bradshaw BASIC METABOLIC PANEL 2020-01-29 12:00:00 Efrain Bennett ESTIMATED GFR 2020-01-29 12:00:00 Efrain Bennett BETA HYDROXYBUTYRATE 2020-01-29 11:32:00 Jami Hoskins THYROID STIMULATING HORMONE 2020-01-29 11:26:00 Jami Hoskins T4, FREE 2020-01-29 11:26:00 Jami Hoskins odkatina CORTISOL LEVEL, RANDOM 2020-01-29 11:26:00 Jami Hoskinsist POC GLUCOSE 2020-01-29 11:23:00 Brigette Suarez odist POC GLUCOSE 2020-01-29 08:52:[address] HEAD WO CONTRAST 2020-01-29 08:10:45 Brigette Suarez BASIC METABOLIC PANEL 2020-01-29 08:00:00 Efrain Bennett ESTIMATED GFR 2020-01-29 08:00:00 Efrain Bennett BASIC METABOLIC PANEL 2020-01-29 04:39:00 Efrain Bennett ESTIMATED GFR 2020-01-29 04:39:00 Efrain Bennett POC GLUCOSE 2020-01-29 03:44:00 Brigette Suarez BASIC METABOLIC PANEL 2020-01-29 01:17:00 Jami Hoskins IONIZED CALCIUM 2020-01-29 01:17:00 Jami Hoskins odist MAGNESIUM LEVEL 2020-01-29 01:17:00 Jami Hoskins odist PHOSPHORUS LEVEL 2020-01-29 01:17:00 Jami Hoskins ESTIMATED GFR 2020-01-29 01:17:00 Jami Hoskins odist POC GLUCOSE 2020-01-29 00:37:00 Brigette Suarez HC COMPLETE BLD COUNT W/AUTO DIFF 2020-01-29 00:28:00 Sa mann Hoskins Baptism POC GLUCOSE 2020-01-28 20:01:00 Brigette Suarez odist BASIC METABOLIC PANEL 2020-01-28 20:00:00 Jami Hoskins ESTIMATED GFR 2020-01-28 20:00:00 AideeJami Gage Meth odist POC GLUCOSE 2020-01-28 16:22:00 Brigette Suarez odist ARTERIAL BLOOD GAS 2020-01-28 15:12:00 AideeJami Gage Kwok ethodist BASIC METABOLIC PANEL 2020-01-28 15:12:00 Jami Hoskins ESTIMATED GFR 2020-01-28 15:12:00 AideeJami Gage Meth odist POC GLUCOSE 2020-01-28 11:23:00 Brigette Suarez Meth odist BASIC METABOLIC PANEL 2020-01-28 10:05:00 Jami Hoskins ESTIMATED GFR 2020-01-28 10:05:00 AideeJami Gage Meth odist POC GLUCOSE 2020-01-28 07:34:00 Brigette Suarez Meth odist POC GLUCOSE 2020-01-28 06:03:00 Brigette Suarez Meth odist BASIC METABOLIC PANEL 2020-01-28 06:00:00 Jami Hoskins ESTIMATED GFR 2020-01-28 06:00:00 AideeJami Gage Meth odist POC GLUCOSE 2020-01-28 05:14:00 Brigette Suarez odist POC GLUCOSE 2020-01-28 04:06:00 Brigette Suarez Meth odist POC GLUCOSE 2020-01-28 03:05:00 Brigette Suarez odist IONIZED CALCIUM 2020-01-28 02:20:00 Aidee Jami Paul odist MAGNESIUM LEVEL 2020-01-28 02:20:00 Jami Hoskins Meth odist PHOSPHORUS LEVEL 2020-01-28 02:20:00 AideeTravisabelardo Almonte Met hodist BASIC METABOLIC PANEL 2020-01-28 02:20:00 Jami Hoskins ESTIMATED GFR 2020-01-28 02:20:00 AideeJami Gage Meth odist POC GLUCOSE 2020-01-28 02:01:00 Brigette Suarez Meth odist HC COMPLETE BLD COUNT W/AUTO DIFF 2020-01-28 02:00:00 Sa mann Hoskins POC GLUCOSE 2020-01-28 00:47:00 Brigette Suarez odist POC GLUCOSE 2020-01-27 23:49:00 Brigette Suarez odist POC GLUCOSE 2020-01-27 23:10:00 Brigette Suarez odist POC GLUCOSE 2020-01-27 21:58:00 Brigette Suarez odist POC GLUCOSE 2020-01-27 20:52:00 Brigette Suarez odist BASIC METABOLIC PANEL 2020-01-27 20:00:00 Jami Hoskins ESTIMATED GFR 2020-01-27 20:00:00 Jami Hoskins odist POC GLUCOSE 2020-01-27 19:59:00 Brigette Suarez odist POC GLUCOSE 2020-01-27 19:08:00 Brigette Suarez odist POC GLUCOSE 2020-01-27 18:03:00 Brigette Suarez odkatina BASIC METABOLIC PANEL 2020-01-27 18:00:00 Jami Hoskins ESTIMATED GFR 2020-01-27 18:00:00 Jami Hoskins URINE CULTURE 2020-01-27 17:20:00 Jami Hoskins URINALYSIS SCREEN AND MICROSCOPY, WITH REFLEX TO CULTURE 202 17:20:00 Jami Hoskins BASIC METABOLIC PANEL 2020-01-27 16:57:00 Jami Hoskins BLOOD CULTURE, AEROBIC & ANAEROBIC 2020-01-27 16:50:00 Tri Hoskins POC GLUCOSE 2020-01-27 16:20:00 Brigette Suarez DKA ELECTROLYTES AND GLUCOSE TEST 2020-01-27 15:20:00 Sa mann Hoskins POC GLUCOSE 2020-01-27 14:38:00 Brigette Suarez INTRAOPERATIVE MONITORING 2020-01-27 13:39:06 Brigette Suarez POC GLUCOSE 2020-01-27 13:39:00 Brigette Suarez DKA ELECTROLYTES AND GLUCOSE TEST 2020-01-27 13:05:00 Aidee mann Bradshaw HC COMPLETE BLD COUNT W/AUTO DIFF 2020-01-27 13:05:00 Sa mann Hoskins HEMOGLOBIN A1C 2020-01-27 13:05:00 Aidee Jami Gage flowers BLOOD CULTURE, AEROBIC & ANAEROBIC 2020-01-27 13:00:00 Tri Hoskins COMPREHENSIVE METABOLIC PANEL 2020-01-27 12:33:00 Jami Hoskins MAGNESIUM LEVEL 2020-01-27 12:33:00 Aidee Jami Gage Paul odist PHOSPHORUS LEVEL 2020-01-27 12:33:00 Aidee Jami Gage wolf ESTIMATED GFR 2020-01-27 12:33:00 Jami Hoskins POC GLUCOSE 2020-01-27 11:42:00 Brigette Suarez BETA HYDROXYBUTYRATE 2020-01-27 11:20:00 Jami Hoskins ARTERIAL BLOOD GAS 2020-01-27 11:20:00 Jami Hoskins M ethodist POC GLUCOSE 2020-01-27 07:42:00 Brigette Suarez BASIC METABOLIC PANEL 2020-01-27 07:35:00 Efrain Darnell LACTIC ACID LEVEL 2020-01-27 07:35:00 Efrain Darnell ESTIMATED GFR 2020-01-27 07:35:00 Efrain Darnell POC GLUCOSE 2020-01-27 04:40:00 Brigette Suarez HEMOGLOBIN A1C 2020-01-27 02:25:00 Tre Abraham hodist PARTIAL THROMBOPLASTIN TIME (PTT) 2020-01-27 02:25:00 Shayne Drake PROTHROMBIN TIME WITH INR 2020-01-27 02:25:00 Ronald Drake HC COMPLETE BLD COUNT W/AUTO DIFF 2020-01-27 02:25:00 Shayne Drake IONIZED CALCIUM 2020-01-27 00:28:00 Ronald Drake MAGNESIUM LEVEL 2020-01-27 00:28:00 Ronald Drake COMPREHENSIVE METABOLIC PANEL 2020-01-27 00:28:00 Ronald Drake ESTIMATED GFR 2020-01-27 00:28:00 Ronald Drake POC GLUCOSE 2020-01-27 00:11:00 Brigette Suarez POC GLUCOSE 2020-01-26 19:41:00 Brigette Suarez [place] AN ELECTIVE ENDOTRACHEAL AIRWAY 2020-01-26 16:31:46 Yelena Amaral CRANIOTOMY 2020-01-26 15:16:00 Brigette Suarez POC GLUCOSE 2020-01-26 12:35:00 Brigette Suarez SURGICAL PATHOLOGY REQUEST 2020-01-26 08:52:00 Brigette Suarez BASIC METABOLIC PANEL 2020-01-26 08:35:00 Brigette Suaerz CBC HEMOGRAM 2020-01-26 08:35:00 Brigette Suarez ESTIMATED GFR 2020-01-26 08:35:00 Brigette Suarez POC GLUCOSE 2020-01-26 08:27:00 Brigette Suarez COVID-19 QUALITATIVE PCR 2020-01-22 18:26:00 Brigette Suarez HC COMPLETE BLD COUNT W/AUTO DIFF 2020-01-22 18:13:00 Morena Suarez ECG PRE/POST OP 2020-01-22 18:07:33 Anu Vazquezodi PARTIAL THROMBOPLASTIN TIME (PTT) 2020-01-22 17:56:00 Cordelia Vazquez PROTHROMBIN TIME WITH INR 2020-01-22 17:56:00 Anu Vazquez TYPE AND SCREEN 2020-01-22 17:56:00 Anu Vazquez ethodi HEMOGLOBIN A1C 2020-01-22 17:56:00 Anu Vazquez ethodist COMPREHENSIVE METABOLIC PANEL 2020-01-22 17:56:00 Brigette Suarez ESTIMATED GFR 2020-01-22 17:56:00 Brigette Suarez odist MRI HEAD EXTERNAL STUDY 2019-10-16 00:00:00 Brigette Suarez [facility] Baptism Colonoscopy [facility] Endoscopy of GI tract [facility] Plan of Care Planned Activity Planned Date Details Comments Source Future Scheduled Test 1992 00:00:00 Screening for dee gnant neoplasm of cervix (procedure) [code = 571918355] Gage Nieves t Future Scheduled Test 1981 00:00:00 DIABETES: RETINAL EYE EXAM [code = DIABETES: RETINAL EYE EXAM] Gage Bradshaw Future Scheduled Test 1981 00:00:00 DIABETIC FOOT EXAM [code = DIABETIC FOOT EXAM] Gage Bradshaw Future Scheduled Test 1981 00:00:00 URINE MICROALBUMIN [code = URINE MICROALBUMIN] Gage Bradshaw Encounters Start Date/Time End Date/Time Encounter Type Admission Type Att[facility] Care Department Encounter ID Source 2020-02-11 00:00:00 2020-02-11 00:00:00 Outpatient [facility] [id number] Gage Bradshaw 2020-01-26 00:00:00 2020-02-02 00:00:00 [facility] [place] [id number] Gage Bradshaw 2020-01-22 00:00:00 2020-01-22 00:00:00 Outpatient [facility] [id number] Gage Bradshaw 2020-01-21 00:00:00 2020-01-21 00:00:00 Outpatient [facility] [id number] Gage Bradshaw 2020-01-21 00:00:00 2020-01-21 00:00:00 Outpatient [facility] [id number] Gage Bradshaw 2018-08-08 13:30:00 2018-08-08 13:30:00 Outpatient [facility] [id number] [facility] 2018-07-29 18:04:00 2018-07-29 18:04:00 Outpatient [facility] [id number] [facility] 2018-07-29 17:56:00 2018-07-29 17:56:00 Outpatient [facility] [id number] [facility] 2018-07-14 15:00:00 2018-07-14 15:00:00 Outpatient [facility] [id number] [facility] 2018-07-14 09:21:00 2018-07-14 09:21:00 Outpatient [facility] [id number] [facility] 2018-07-08 09:24:00 2018-07-08 09:24:00 Outpatient [facility] [id number] [facility] 2018-07-07 10:27:00 2018-07-07 10:27:00 Outpatient [facility] [id number] [facility] 2018-07-02 16:11:00 2018-07-02 16:11:00 Outpatient [facility] [id number] [facility] 2018-05-31 00:00:00 2018-06-29 23:59:00 Outpatient Esther Moseley [facility] [id number] 2018-04-19 07:00:00 2018-05-18 23:59:00 Outpatient Esther Moseley [facility] [id number] 2018-04-19 07:00:00 2018-05-18 23:59:00 Outpatient Esther Moseley [facility] [id number] 2018-05-02 11:15:00 2018-05-02 11:15:00 Outpatient [facility] [id number] [facility] 2018-05-02 09:00:00 2018-05-02 09:00:00 Outpatient [facility] [id number] [facility] 2018-05-01 13:54:00 2018-05-01 13:54:00 Outpatient [facility] [id number] [facility] 2018-04-25 14:36:00 2018-04-25 14:36:00 Outpatient [facility] [id number] [facility] 2018-03-18 08:00:00 2018-04-16 23:59:00 Outpatient Esther [facility]leycera [facility] [id number] 2018-04-04 14:31:00 2018-04-04 14:31:00 Outpatient [facility] [id number] [facility] 2018-04-03 09:40:00 2018-04-03 09:40:00 Outpatient [facility] [id number] [facility] 2018-04-03 08:30:00 2018-04-03 08:30:00 Outpatient [facility] [id number] [facility] 2018-03-07 10:00:00 2018-03-07 10:00:00 Outpatient [facility] [id number] [facility] 2018-02-21 13:40:00 2018-02-21 13:40:00 Outpatient [facility] [id number] [facility] 2018-02-18 08:24:00 2018-02-18 08:24:00 Outpatient [facility] [id number] [facility] 2018-01-21 08:14:00 2018-01-21 10:14:00 Outpatient Joseilto Kwon [facility] [id number] 2018-01-14 08:28:00 2018-01-14 10:28:00 Outpatient Joselito Kwon [facility] [id number] 2017-12-09 08:56:00 2017-12-09 23:59:00 Outpatient Joselito Kwon [facility] [id number] 2017-10-02 10:03:00 2017-10-02 10:03:00 Outpatient [facility] [id number] [facility] 2017-10-01 13:32:00 2017-10-01 13:32:00 Outpatient [facility] [id number] [facility] 2017-09-16 11:42:00 2017-09-16 11:42:00 Outpatient [facility] [id number] [facility] 2017-08-05 09:10:00 2017-08-05 09:10:00 Outpatient [facility] [id number] [facility] 2017-07-29 08:40:00 2017-07-29 08:40:00 Outpatient [facility] P [id number] [facility] Results Test Description Test Time Test Comments Results Result Comments Source POC glucose 2020-02-02 11:45:20 Test Item POC glucose (test code = 77410-6) 170 mg/dL 65-99 H Hand Ironer Name: Brent Garner ID: [id number]: [facility] Notified concrete craftsman Interpretation (test code = 78150-7) Abnormal Portal [facility] venous upper tuyzszkto5348-82-02 10:09:00Interface, Radiology Results In - 02/02/2020 10:10 AM CDT Vascular Ultrasound Laboratory Upper Extremity Venous Report [id number] [place] [address] Pat.Name: DEANNA CONTRERAS Pat.ID: [id number] .Date: 02/01/2020 Refer.MD: CARL ANDREW MD Exam Time: 9:02:00 AM Study Type:UE Venous Height: 70in Weight: 289lb BSA: 2.44 m2 Age: 12 1970,49Y Sex: FEMALE Sonogrphr: Vivienne Hernandez, RVT, Juan Manuel Nevarez, RVS, RCSPat. Stat.:Inpatient Room: [address] Vol: YH/SB, CPT - 4: 69771 Echo Event ID:[id number] Order ID: [id number] Reason for Study:Arm swelling, DVT suspected. History of lefttrigeminal neuralgia, diabetes, anxiety, arthritis, asthma, disease ofthyroid gland and GERD.Procedures: B-flow imaging, Colorflow, Grayscale/2D, Pulsed waveDopplerRace: C - SUMMARY: D UPLEX SCAN OBSERVATIONS Right LeftIJ NormalSubclavian Normal NormalAxillary NormalBrachial NormalBasilic NormalCephalic NormalRIGHT: There is normal compressibility with no evidence of echogenicmaterial noted within the lumen of the visualized veins. Colorflow andDoppler signals are normal.LEFT: There is n ormal compressibility with no evidence of echogenicmaterial noted within the lum en of the visualized veins. Colorflow andDoppler signals are normal. PRELIMIN LYDIA FINDINGS1. No evidence of venous thrombosis noted in the visualized upperext remity veins. PHYSICIAN INTERPRETATION Venous examination of the left upper extr emity and neck demonstratedno evidence of venous thrombosis. FINDINGS: Signed 02/02/2020 1 0:09 Letty Vega MD, FACS, [facility] MethodistBasic metabolic panel 2020-02-02 06:01:49* Test Item Value Reference Range Interpretation Comments Sodium (test code = 2951-2) 139 135- 148 mEq/L Potassium (test code = 2823-3) 4.4 3.5- 5.0 mEq/L Chloride (test code = 2075-0) 97 98- 112 mEq/L L CO2 (test code = 2027-9) 29 24- 31 mEq/L Anion gap (test code = 34886-3) 13@ANIO 7- 15 mEq/L BUN (test code = 3094-0) 5 mg/dL 6-20 L Creatinine (test code = 2160-0) 0.55 mg/dL 0.5-0.9 Glucose (test code = 2345-7) 166 mg/dL 65-99 H Calcium (test code = 25207-9) 9.2 mg/dL 8.3-10.2 Lab Interpretation (test code = 08021-2) Abnormal Gage MethodistEstimated [id number] 06:01:44* Test Item Value Reference Range Interpretation Comments Estimated GFR (test code = 5488) >=90 mL/min/1.73 m2 Catergory Units InterpretationG1 >=90 Normal or highG2 60-89 Mildly ylfajylldD0i 45-59 Mildly to moderately rovjepiqzZ5h 30-44 Moderately to severely decreasedG4 15-29 Severely decreasedG5 <15 Kidney failureThe eGFR was calculated using the Chronic Kidney Disease Epidemiology Collaboration (CKD-EPI) equation. Interpretation is based on recommendations of the National Kidney Foundation-Kidney Disease Outcomes Quality Initiative (NKF-KDOQI) published in 2014. Gage MethodistCBC with platelet and xozbjtstfeik4389-85-00 05:51:02* Test Item Value Reference Range Interpretation Comments WBC (test code = 01016-3) 9.16 4.50- 11.00 k/uL RBC (test code = 93238-8) 4.36 m/uL 4.2-5.5 HGB (test code = 718-7) 12.5 g/dL 12-16 HCT (test code = 4544-3) 37.9 % 37-47 MCV (test code = 787-2) 86.9 fL 82-100 MCH (test code = 785-6) 28.7 pg 27-34 MCHC (test code = 786-4) 33.0 g/dL 31-37 RDW - SD (test code = 86184-9) 40.6 fL 37-55 MPV (test code = 15876-6) 9.9 fL 8.8-13.2 Platelet count (test code = 50591-7) 210 150- 400 k/uL Nucleated RBC (test code = 65758-8) 0.00 /100 WBC Neutrophils (test code = 62343-2) 61.8 % 39-69 Lymphocytes (test code = 26973-2) 27.1 % 25-45 Monocytes (test code = 94785-6) 8.3 % 0-10 Eosinophils (test code = 76456-6) 2.3 % 0-5 Basophils (test code = 20757-1) 0.3 % 0-1 Immature granulocytes (test code = 10683-2) 0.2 % 0-1 "Immature granulocytes" (promyelocytes, myelocytes, metamyelocytes) Gage MethodistBlood culture, aerobic & rjygyzzot9667-17-50 17:33:11* Test Item Value Reference Range Interpretation Comments Blood culture isolate (test code = 600-7) No growth after 5 days of incubation. Specimen InformationSpecimen Source: BloodSpecimen Site: Antecubital, right Gage BradshawVitamin D 25 hydroxy [id number] 16:20:02* Test Item Value Reference Range Interpretation Comments Vitamin D, 25-hydroxy (test code = 1989-3) 53.8 ng/mL 30-150 This assay reports the sum of 25-hydroxy vitamin D3 and 25-hydroxy vitamin D2. Reference range:0-17 years:Deficiency: less than 20ng/mLOptimum level: greater than or equal to 20 ng/mL.18 years and older:Deficiency: less than 20ng/mLInsufficiency: 20-29 ng/mLOptimum Level: 30-80 ng/mLThe assay reportable range is 3.4 155.9 ng/mL. Levels higher than 150 ng/mL may be associated with toxicity.If toxicity is clinically suspected and the reported result is >155.9 ng/mL,contact lab for alternative methods to obtain a definitive level.If separate quantitation of 25-hydroxy vitamin D3 and 25-hydroxy vitamin D2 is needed, please contact lab for alternative methods. Gage MaguireMagaliurgical pathology uwzofqs7807-00-41 11:55:23* Test Item Value Reference Range Interpretation Comments Case number (test code = 0132393) [id number] Surgical pathology report (test code = 2255) See link below for PDF Lab Report Result status (test code = 0340880) This is Final Report for [id number] [facility] 1 Vw Umdzrgjv5576-24-80 06:33:14Hm Interface, Radiology Results - 01/30/2020 6:36 AM CDTEXAMINATION: XR CHEST 1 VW PORTABLECLINICAL HISTORY: ICU pt unstable or clinical worseningCOMPARISON: NoneIMPRESSION:1.Heart size is within normal limits.2.No infiltrates or effusions are seen. Vessels are not congested.[id number] Baptism Lipid qpojr5749-31-61 03:15:41* Test Item Value Reference Range Interpretation Comments Cholesterol (test code = 2093-3) 101 mg/dL <200 Triglycerides (test code = 2571-8) 91 mg/dL <150 HDL cholesterol (test code = 2085-9) 44 mg/dL >40 LDL cholesterol (test code = 2089-1) 44 mg/dL <100 Result obtained by direct LDL measurement Lipid panel interpretation (test code = 68974-2) SeeBelow Total Cholesterol (mg/dL) <200 Desirable 200-239 Borderline-high >=240 High Triglycerides (mg/dL) <150 Normal 150-199 Borderline-high 200-499 High >=500 Very high HDL Cholesterol (mg/dL) <40 Low (male) <40 Low (female) LDL Cholesterol (mg/dL) <100 Optimal 100-129 Near or above optimal 130-159 Borderline-high 160-189 High >=190 Very high Risk Catergories that modify LDL goals.Risk Catergories LDL goal (mg/dL)CHD and CHD risk equivalent <100 (10-year risk >20%)Multiple (2+) risk factors <130 (10-year risk =<20%)0-1 risk factors <160 (<10-year risk) Defining levels of lipids in metabolic syndromeTriglycerides >=150 mg/dLHDL Cholesterol Men <40 mg/dL Women <40 mg/dL Non-HDL cholesterol is a second target for therapy in personswith high triglycerides (>=200 mg/dL) Portal MethodistMagnesium [id number] 03:15:38* Test Item Value Reference Range Interpretation Comments Magnesium (test code = 38173-6) 1.8 mg/dL 1.6-2.6 Portal MethodistPhosphorus [id number] 03:15:37* Test Item Value Reference Range Interpretation Comments Phosphorus (test code = 2777-1) 3.3 mg/dL 2.4-4.5 Portal MethodistIonized bnnunim8258-30-13 03:08:32* Test Item Value Reference Range Interpretation Comments pH (test code = 2753-2) 7.52 Ionized calcium (test code = 1994-) 1.09 mmol/L 1.11-1.32 L Lab Interpretation (test code = 94810-3) Abnormal Portal MethodistUrinalysis, dipstick [id number] 14:11:41* Test Item Value Reference Range Interpretation Comments pH, UA (test code = 5803-2) 6.0 5.0-8.5 Protein, UA (test code = 06520-4) Negative Negative Glucose, UA (test code = 38976-8) 3+ Negative A UKET/UGLU results called to and read back by [facility] (name[facility]location[facility] at 01/29/2020 14:10 ___(date/time) by _DB_. Ketones, UA (test code = 2514-8) 1+ Negative A Bilirubin, UA (test code = 5770-3) Negative Negative Blood, UA (test code = 5794-3) Negative Negative Nitrite, UA (test code = 5802-4) Negative Negative Urobilinogen, UA (test code = 62870-1) <2.0 <2.0 Leukocyte esterase, UA (test code = 5799-2) Negative Negative Lab Interpretation (test code = 74494-8) Abnormal Portal MethodistCortisol level, [id number] 13:09:51* Test Item Value Reference Range Interpretation Comments Cortisol, random (test code = 2143-6) 6 ug/dL Reference Ranges are not established for non-timed Cortisol levels.Reference Range for Timed Cortisol: 6 - 10 AM 6 - 18 ug/dl 4 - 8 PM 3 - 11 ug/dl Almonte MethodistT4, [id number] 13:09:51* Test Item Value Reference Range Interpretation Comments T4, free (test code = 3024-7) 1.6 ng/dL 0.9-1.7 Portal MethodistThyroid stimulating wwklcwf9212-81-94 13:09:51* Test Item Value Reference Range Interpretation Comments TSH (test code = 3016-3) 0.05 0.27- 4.20 uIU/mL L Lab Interpretation (test code = 21004-1) Abnormal Portal MethodistBeta lfwizajygqqligc9198-81-29 12:50:54* Test Item Value Reference Range Interpretation Comments Beta hydroxybutyrate (test code = 6873-4) 1.81 mmol/L 0.02-0.27 H Lab Interpretation (test code = 45589-5) Abnormal Portal MethodistCT Head Wo [id number] 08:13:20Hm Interface, Radiology Results Incoming - 01/29/2020 8:16 AM CDTEXAMINATION: CT HEAD WO CONTRASTCOMPARISON: NoneCLINICAL HISTORY surgical followup. TECHNIQUE: Non- contrast CT scan of the head with thin-section contiguous transaxial images from the skull base to the vertex. CT scans are performed using radiation dose reduction techniques. Technical factors are evaluated and adjusted to ensure ap propriate moderation of exposure. Automated dose management technology is applie d to adjust radiation exposure while achieving a highly diagnostic quality image .FINDINGS:Nonenhanced emergency cranial CT was performed at approximately 0750 h ours.There is a small left occipital retromastoid craniectomy. There is a small amount of air and fluid in the left CP angle cistern. There is a radiopaque pled get in the left CP angle cistern.The ventricles and sulci are normal.There is no edema or hemorrhage or hydrocephalus.IMPRESSION:Recent postoperative changes in the left side of the posterior fossa without acute hemorrhage or hydrocephalus or edema.[facility]-[id number] MethodistArterial blood [id number] 15:28:22* Test Item Value Reference Range Interpretation Comments pH, arterial (test code = 2744-1) 7.38 7.35-7.45 pCO2, arterial (test code = 2019-) 32 35- 45 mmHg L pO2, arterial (test code = 2703-7) 131 80- 90 mmHg H Bicarbonate, arterial (test code = 1960-4) 18.7 mmol/L 21-28 L Base excess, arterial (test code = 1925-7) -5 -2 - 2 mEq- L L O2 saturation, arterial (test code = 2708-6) 99 % 95-100 Lab Interpretation (test code = 16951-2) Abnormal Portal MethodistUrinalysis screen and microscopy, with reflex to culture 2020-01-27 23:21:01* Test Item Value Reference Range Interpretation Comments Specimen site (test code = 2947201) Clean catch Color, UA (test code = 5778-6) Straw Appearance, UA (test code = 5767-9) Clear Specific gravity, UA (test code = 5811-5) 1.009 1.001-1.035 pH, UA (test code = 5803-2) 5.0 5.0-8.5 Protein, UA (test code = 43226-7) Negative Negative Glucose, UA (test code = 21231-9) 3+ Negative A UGLU/UKET results called to and read back by LYLE ZUNIGA/[facility] (name/location) at _ 21:02 01/27/2020 __(date/time) by __GPO. Ketones, UA (test code = 2514-8) 2+ Negative A Bilirubin, UA (test code = 5770-3) Negative Negative Blood, UA (test code = 5794-3) Negative Negative Nitrite, UA (test code = 5802-4) Negative Negative Urobilinogen, UA (test code = 16124-8) <2.0 <2.0 Leukocyte esterase, UA (test code = 5799-2) Negative Negative Epithelial cells, UA (test code = 5787-7) <1 /HPF WBC, UA (test code = 5821-4) 1 0- 4 /HPF RBC, UA (test code = 99801-8) <1 0- 5 /HPF Bacteria, UA (test code = 33559-7) Few None seen Yeast, UA (test code = 59292-6) None seen Yeast with pseudohyphae, UA (test code = 99996-4) None seen Hyaline casts, UA (test code = 5796-8) 1 /LPF Lab Interpretation (test code = 91698-5) Abnormal Portal MethodistUrine jwdptdy2996-35-83 20:58:55* Test Item Value Reference Range Interpretation Comments Urine culture (test code = 3634819) SEE COMMENT Bacteriuria screen negative. Portal MethodistDKA electrolytes and glucose pvoo9020-35-75 15:31:45* Test Item Value Reference Range Interpretation Comments Sodium, whole blood (test code = 2947-0) 139 135- 148 mEq/ L Potassium, whole blood (test code = 6298-4) 3.6 3.5- 5.0 m Eq/L Chloride, whole blood (test code = 2069-3) 116 98- 112 mEq /L H CO2 calculated, whole blood (test code = 52302-2) 13 24- 31 mEq/L LL Anion gap, whole blood (test code = 81665-3) 10 5- 20 mEq /L Glucose, whole blood (test code = 2339-0) 145 mg/dL 65-99 H Lab Interpretation (test code = 39213-9) Abnormal Portal MethodistComprehensive metabolic evlae6637-72-48 14:14:41* Test Item Value Reference Range Interpretation Comments Sodium (test code = 2951-2) 137 135- 148 mEq/L Potassium (test code = 2823-3) 4.4 3.5- 5.0 mEq/L Chloride (test code = 5-0) 101 98- 112 mEq/L CO2 (test code = 2027-) 12 24- 31 mEq/L LL Anion gap (test code = 07543-3) 24@ANIO 7- 15 mEq/L H BUN (test code = 3094-0) 7 mg/dL 6-20 Creatinine (test code = 2160-0) 0.57 mg/dL 0.5-0.9 Glucose (test code = 2345-7) 136 mg/dL 65-99 H Calcium (test code = 55682-4) 8.5 mg/dL 8.3-10.2 Protein (test code = 2885-2) 6.5 g/dL 6.3-8.3 - 4.6- 7.0 g/dL1 week 4.4-7.6 g/dL7 months-1year 5.1-7.3 g/dL1-2 years 5.6-7.5 g/dL>3 years 6.0-8.0 g/hF23-918 6.3-8.3 g/dL Albumin (test code = 1751-7) 3.3 g/dL 3.5-5 L A/G ratio (test code = 1759-0) 1.0 0.7-3.8 Alkaline phosphatase (test code = 6768-6) 103 U/L 35-104 AST (test code = 1920-8) 27 U/L 10-35 ALT (test code = 1742-6) 11 U/L 5-50 Total bilirubin (test code = 1974-) <0.2 0-1.2 TOM (test code = TOM) _DKA results called to and r ead back by _BARB WHEELER/WT11(name/location)at __ 01/27/2020 13:35 (date/time) by _AD_.?STAT and Every 2 Hours x2 (Followed by DKA electrolytes and?glucose test every 4 hours x3)?This test includes: Sodium, Potassium, Chloride, CO2, Anion?Gap, and Glucose Lab Interpretation (test code = 17938-3) Abnormal [place] MethodistHemoglobin [id number] 13:35:49* Test Item Value Reference Range Interpretation Comments Hemoglobin A1C (test code = 98271-2) 10.5 % 4-5.6 H HbA1c cutoffs for diagnosing diabetes:4.0% - 5.6% = normal5.7% - 6.4% = increased risk for diabetes (prediabetes)9>=6.5% = cnuzpncx9Iguza for glycemic control (ADA 2016)< 7.0% Target for non adults with diabetes. More or less stringent targets may be appropriate for individual patients. <7.5% Target for Children and adolescents with type 1 diabetes. TOM (test code = TOM) _DKA results called to and r ead back by _BARB WHEELER/WT11(name/location)at __ 01/27/2020 13:35 (date/time) by _AD_.?STAT and Every 2 Hours x2 (Followed by DKA electrolytes and?glucose test every 4 hours x3)?This test includes: Sodium, Potassium, Chloride, CO2, Anion?Gap, and Glucose Lab Interpretation (test code = 86648-5) Abnormal Portal MethodistLactic acid [id number] 09:35:02* Test Item Value Reference Range Interpretation Comments Lactic acid (test code = 98069-2) 0.8 mmol/L 0.5-2.2 Portal MethodistPartial thromboplastin time, [id number] 03:38:58* Test Item Value Reference Range Interpretation Comments PTT (test code = 32163-9) 30.0 23.0- 36.0 sec PTT therapeutic range for unfractionated heparin is61.0-112.0 seconds which corresponds to Anti-Xa0.3-0.7 U/ml. Portal MethodistProthrombin time with [id number] 03:38:48* Test Item Value Reference Range Interpretation Comments Prothrombin time (test code = 5902-2) 14.1 11.5- 14.5 sec INR (test code = 58351-1) 1.1 Th e International Normalized Ratio (INR) is a therapeutic monitoring tool for patients who are stable on oral anticoagulant therapy. An INR of 2.0-3.0 is suggested for deep vein thrombosis/pulmonary embolism. Portal [id number] 16:31:46Radha Amaral MD 01/26/2020 4:32 PMAirway Date/Time: 01/26/2020 3:20 PMPerformed by: Radha Amaral MDAuthorized by: Radha Amaral MD Location: ORUrgency: ElectiveDifficult Airway: No Anesthesiologist: Radha Amaral, MDResident/TELEVISION CABINET FINISHER/AA: Nazia Mac MDPreoxygenated with 100% O2: Yes C-spine Precautions Maintained Throughout: Yes Mask Ventilation: Easy maskFinal Airway Type: Endotracheal airwayFinal Endotracheal Airway: ETTCuffed: Yes Insertion Site: OralBlade Type: MillerLaryngoscope Blade/Videolaryngoscope Blade Size: 2ETT Size (mm): 7.0Cuff at minimum occlusion pressure: Yes Measured from: TeethETT to Teeth (cm): 22Placement Verified by: CO2 detection and direct visualization Number of Attempts at Approach: 1 Atraumatic [facility] [id number] 09:11:50* Test Item Value Reference Range Interpretation Comments WBC (test code = 83565-2) 8.38 4.50- 11.00 k/uL RBC (test code = 09545-9) 5.05 m/uL 4.2-5.5 HGB (test code = 718-7) 14.4 g/dL 12-16 HCT (test code = 4544-3) 41.4 % 37-47 MCV (test code = 787-2) 82.0 fL 82-100 MCH (test code = 785-6) 28.5 pg 27-34 MCHC (test code = 786-4) 34.8 g/dL 31-37 RDW - SD (test code = 45996-2) 38.2 fL 37-55 MPV (test code = 83130-3) 10.0 fL 8.8-13.2 Platelet count (test code = 48098-9) 199 150- 400 k/uL Nucleated RBC (test code = 26099-3) 0.00 /100 WBC [facility] Head External [id number] 15:13:28This exam was not acquired at a [facility] facility and has not been interpreted by a [facility] Provider. The exam was imported into our imaging system.Portal MethodistECG Pre/Post [id number] 16:09:28* Test Item Value Reference Range Interpretation Comments Ventricular rate (test code = 253) 98 Atrial rate (test code = 255) 98 [place] interval (test code = 266) 144 QRSD interval (test code = 260) 86 QT interval (test code = 264) 366 QTC interval (test code = 265) 467 P axis 1 (test code = 267) 66 QRS axis 1 (test code = 268) 85 T wave axis (test code = 270) 37 EKG impression (test code = 273) Normal sinus rhythm-C annot rule out Inferior infarct , age undetermined-Abnormal ECG-No previous ECGs available- Portal MethodistCOVID-19 qualitative [id number] 02:01:17* Test Item Value Reference Range Interpretation Comments Interpretation (test code = 2709625) Negative results do not preclude 2019-nCoV infection and should not be used as the sole basis for treatment or other patient management decisions. Negative results must be combined with clinical observations, patient history, and epidemiological information. COVID-19 qualitative PCR result (test code = 20176-0) Not-Detect ed Not-Detected COVID-19 qualitative PCR (test code = 7070) See link below for P DF Lab Report Portal MethodistType and ffqjej1044-76-76 20:19:00* Test Item Value Reference Range Interpretation Comments ABO grouping (test code = 883-9) O Rh type (test code = 23761-8) POS Antibody screen (gel) (test code = 890-4) NEG Portal MethodistKN LEFT 1-2 [id number] 10:15:00 [facility] [address] [place] [address] Patient Name: DEANNA CONTRERAS MR #: [id number] : 1970 Age/Sex: 49/F Req #: [id number] Adm Physician: Ordered by: MARTHA ZAMBRANO DO Report #: [id number] Location: RAD Room/Bed: Procedure: [id number] DX/KNEE LEFT 1 -2 VIEWS Exam Date: 08/28/19 Exam Time: 914 REPORT STATUS: Signed EXAMINATION: KNEE LEFT 1-2 VIEWS INDICATION: Patellar tendinitis COMPARISON: None FINDINGS: No acute fracture or dislocation. Alignment is anatomic. Moderate patellofemoral compartment predominant tricompartmental degenerative changes with joint space narrowing and osteophyte formation. No substantial joint effusion. IMPRESSION: No acute osseous injury. Moderate pat ellofemoral compartment predominant tricompartmental degenerative changes. Signed by: Jonathan Jaimes MD on 08/28/2019 10:16 AM Dictated By: JONATHAN JAIMES MD 1016 Transcribed By: Katia FRANKLIN on 08/28/19 1016 COPY TO: MARTHA ZAMBRANO DO SCR MAMM BILATERAL LUZ CAD [id number] 12:14:11 - SCR MAMM BILATERAL LUZ CAD DIGITALBILATERAL DIGITAL SCREENING MAMMOGRAM 3D/2D WITH CAD: 05/01/2019CLINICAL: Asymptomatic. Digital breast tomosynthesis was performed in addition to routine CC and MLO views. Current mammographic images were evaluated by either a [employer] M-Vu or a [employer] ImageChecker CAD (computer aided detection system). Comparison is made to exams dated 02/08/2018 mammogram, 02/01/2017 mammogram, and 01/30/2016 mammogram - [facility]-. There are scattered fibroglandular tissues in both breasts. There is a benign intramammary node in the right breast. There also are benign intramammary nodes in the left breast. No suspicious mass, architectural distortion, malignant type calcification, or lymph node abnormality detected. Breast architecture is stable compared to prior exams.IMPRESSION: BENIGNThere is no mammographic evidence of malignancy. Resume annual screening mammography in one year. Hiro Wood M.D. ss/penrad:05/01/2019 12:14:11 Martial Arts Instructor: Brittany MARCANO, [facility]-FWletter sent: BIRADS 1-2 Normal Mammogram BI-RADS: 2 BenignSINUS CULTURE + GRAM [id number] 11:43:00* Test Item Value Reference Range Interpretation Comments CULTURE (BEAKER) (test code = 1095) STAPHYLOCOCCUS AUREUS A 1+ Staphylococcus aureus Clindamycin (test code = 10) R Erythromycin (test code = 4) R Linezolid (test code = 40) S Nitrofurantoin (test code = 23) S Oxacillin (test code = 14) S Rifampin (test code = 43) S Tetracycline (test code = 2) S Trimethoprim + Sulfamethoxazole (test code = 47) S Vancomycin (test code = 13) S GRAM STAIN RESULT (BEAKER) (test code = 1123) <1+ White blood cells seen GRAM STAIN RESULT (BEAKER) (test code = 107829) <1+ gr am positive cocci in pairs No Normal respiratory herman presentCT CHEST WO [place] [address] Patient Name: DEANNA CONTRERAS MR #: [id number] : 1970 Age/Sex: 47/F Req #: [id number] Adm Physician: Ordered by: MARTHA ZAMBRANO DO Report #: [id number] Location: CT Room/Bed: Procedure: [id number] CT/CT CHEST WO Exam Date: Exam Time: 1006 REPORT STATUS: Signed PROCEDURE: CT CHEST WITHOUT CONTRAST CT scan of the chest WITHOUT intravenous contrast, using standard protocol. TECHNIQUE: The chest was scanned u tilizing a multidetector helical scanner from the apex to the level of the ad renal glands. No IV contrast was administered because of referring physician request. Coronal and sagittal multiplanar reformations were obtained. COMPARISON: Chest x-ray 03/25/2017 INDICATIONS: CHRONIC COUGH FINDINGS: Lines/tubes: None. Lungs and Airways: Small paramediastinal air filled cyst in the right upper lobe. The lungs and airways are otherwise normal with no focal abnormality demonstrated. Pleura: The pleural spa andry are clear. Heart and mediastinum: Enlargement of the left lobe of the thyroid without discrete nodule.. No ectasia or aneurysmal dilatation of the thoracic aorta. Pulmonary outflow tract is of normal caliber. No axillary, hilar, or mediastinal lymphadenopathy. No pericardial effusion. Soft t issues: Normal. Abdomen: Visualized portions of the liver, spleen, pancrea s, and adrenal glands are unremarkable. Bones: No osseous destructive l esions or focal soft tissue abnormalities. Mild degenerative disc changes of the thoracic spine. IMPRESSION: No intrathoracic CT abnormalities. Dictated by: Cyn Gomez M.D. on 09/25/2017 at 10:25 Electr onically approved by: Cyn Gomez M.D. on 09/25/2017 at 10:25 Dic tated By: CYN GOMEZ MD 1025 COPY TO: MARTHA ZAMBRANO DO [facility] (PORTABLE) [place] [address] Patient Name: DEANNA CONTRERAS MR #: [id number] : 1970 Age/Sex: 46/F Req #: [id number] Adm Physician: Ordered by: DAYSI ARCHER MD Report #: [id number] Location: ER Room/Bed: Procedure: [id number] DX/CHEST SINGLE (PORTABLE) Ramos m Date: 03/25/17 Exam Time: 1140 REPORT STATUS: Signed PROCEDURE: CHEST SINGLE (PORTABLE) TECHNIQUE: Portable AP chest INDICATION: Chest and back pain COMPARISON: None. FINDINGS: The lungs are clear and symmetrically inflated. No pleural effusions. Normal hea rt size and mediastinal contour. CONCLUSION: No acute abnormality. Dictated by: Alexa Rausch M.D. on 03/25/2017 at 12:25 Electronically approved by: Alexa Rausch M.D. on 03/25/2017 at 12:25 Dictated By: ALEXA RAUSCH MD 1225 Transcribed By: JOCY on 03/25/17 1225 COPY TO: DAYSI ARCHER MD
== END 2020-02-17 21:10 | disposition home or self-care (01) ==
LOC: FSED 20:24
DX: S05.01XA Injury of conjunctiva and corneal abrasion without foreign body, right eye, initial encounter (principal); W22.8XXA Striking against or struck by other objects, initial encounter; K21.9 Gastro-esophageal reflux disease without esophagitis; K58.9 Irritable bowel syndrome, unspecified
CPT/HCPCS: 99283

== ENCOUNTER → 2020-03-08 | Outpatient (CLI) | payer BC ==
[~2020-03-08] MED LIST changes: +POLYTRIM EYE DR10 ML OD
--- NOTE | 2020-03-09 08:39 | Diagnostic Imaging Report ---
Chest, 2 views, 03/08/2020. History: Cough. Comparison: None available. Findings: The cardiomediastinal silhouette and pulmonary vasculature are within normal limits. The lungs are clear without evidence of consolidation or pleural effusion. There are no acute osseous or soft tissue abnormalities. Impression: No acute cardiopulmonary abnormality. Signed by: Hardy Bey on 03/09/2020 8:36 AM
== END ==
LOC: RAD 16:26
PROVIDERS: ATTEND Family Medicine
DX: R07.81 Pleurodynia (principal); M54.6 Pain in thoracic spine
CPT/HCPCS: 71046

== ENCOUNTER → 2022-08-07 | Day surgery (SDC) | payer BC ==
[~2022-08-07] MED LIST changes: +CRESTOR10 MG PO; +FIBER LAX625 MG PO; +LACTATED RINGER'S 1,000 ML ONE; +LEVOTHYROXINE75 MCG PO; +LIDOCAINE HCL 2% LOCAL INJ 5 ML SDV VIAL INJ ONE; +MELATONIN3 MG PO; +MELOXICAM7.5 MG PO; +METFORMIN HCL500 M2 PO; +MIDAZOLAM HCL 2 MG/2 ML VIAL ONE; +NEURONTIN300 MG PO; +OZEMPIC0.25 MG/0. SC; +PRILOSEC10 M1 PO; +PROPOFOL IV EMULSION 10 MG/ML 20 ML VIAL ONE; +TAMOXIFEN CITRA20 MG PO; +XANAX0.5 MG PO; +[UNRECOGNIZED DRUG - OTHER]
[2022-08-07 10:55] VITALS: BP 112/63
== END | disposition home or self-care (01) ==
LOC: OR 08:06
PROVIDERS: ATTEND Internal Medicine Gastroenterology
DX: Z12.11 Encounter for screening for malignant neoplasm of colon (principal); D12.3 Benign neoplasm of transverse colon; K57.30 Diverticulosis of large intestine without perforation or abscess without bleeding; K64.8 Other hemorrhoids; K21.9 Gastro-esophageal reflux disease without esophagitis; E11.9 Type 2 diabetes mellitus without complications; J30.2 Other seasonal allergic rhinitis; G50.0 Trigeminal neuralgia; Z01.810 Encounter for preprocedural cardiovascular examination; Z79.4 Long term (current) use of insulin; Z79.84 Long term (current) use of oral hypoglycemic drugs; Z79.85 Long-term (current) use of injectable non-insulin antidiabetic drugs; Z79.1 Long term (current) use of non-steroidal anti-inflammatories (NSAID); Z79.899 Other long term (current) drug therapy; Z68.35 Body mass index [BMI] 35.0-35.9, adult; Z85.3 Personal history of malignant neoplasm of breast; Z92.3 Personal history of irradiation; Z80.0 Family history of malignant neoplasm of digestive organs
CPT/HCPCS: 36415; 45385; 81025; 82948; 93005; J2001; J2250; J2704; J7121; 45378